=== PATIENT | female | born 1955 | race Two or more races ===

== ENCOUNTER 2024-02-28 23:49 | Inpatient (IN) | payer OTHER ==
[~2024-02-28] VITALS: Ht 167.6 cm; Wt 66.4 kg
[2024-02-29] VITALS (7 sets, daily range): BP systolic 113; BP diastolic 57; PULSE 20–91; RESP 14–20; TEMP 97.9; O2SAT 93–99
[2024-02-29 00:51] LABS: Chloride 105 mmol/L (98-107); Potassium 3.3 mmol/L (3.5-5.1); Sodium 133 mmol/L (136-145)
[2024-02-29 00:52] LABS: Anion Gap 8 (5-15); Basophils # (auto) 0 10 ^3/uL (0-0.2); Calcium 7.8 mg/dL (8.7-10.4); Carbon Dioxide 20 mmol/L (20-30); Eosinophils # (auto) 0.1 10 ^3/uL (0-0.8); Eosinophils % (auto) 0.9 % (0.0-7.0); Mean Corpuscular Volume 83.4 fL (80.0-100.0); Monocytes # (auto) 0.3 10 ^3/uL (0-1.3)
[2024-02-29 00:54] LABS: Basophils % (auto) 0.3 % (0.0-2.0); Hemoglobin 9.4 g/dL (12.2-16.2); Lymphocytes # (auto) 1.6 10 ^3/uL (0.4-5.4); Lymphocytes % (auto) 12.1 % (10.0-50.0); Mean Corpuscular Hgb Conc. 33.6 g/dL (32.0-36.0); Monocytes % (auto) 2.7 % (0.0-12.0); Neutrophils # (auto) 10.9 10 ^3/uL (1.6-8.6); Nucleated Red Blood Cells % 0.1 %; Red Blood Cells 3.36 10^6/uL (4.0-5.20); Red Cell Distribution Width 17.4 % (11.8-14.3)
[2024-02-29 00:57] LABS: BUN/Creatinine Ratio 30.8 (10.0-20.0); Blood Urea Nitrogen 20 mg/dL (9-23); Glucose 100 mg/dL (74-106)
[2024-02-29 01:23] LABS: Large Platelets MODERATE; Platelet Count (auto) 863 10^3/uL (140-450); Platelet Estimate Marked
[2024-02-29 02:06] LABS: Lactic Acid w/Reflex 2.7 mmol/L (0.4-2.0)
[2024-02-29] MEDS: SODIUM CHLORIDE 0.9% 1,000 ML IV ONE (03:30)
[2024-02-29] MEDS: SODIUM CHLORIDE 0.9% 1,800 ML IV ONE (03:30)
[2024-02-29] MEDS: cefTRIAXone 1GM/50ML D5W 50 ML IV ONE (03:30)
[2024-02-29] MEDS: CLINDAMYCIN 600MG IV 50 ML IV ONE (04:25)
[2024-02-29 05:09] LABS: Urine Bacteria None Seen /hpf (None Seen)
[2024-02-29 05:33] LABS: Urine Blood Negative /uL (Negative); Urine Clarity Clear (Clear); Urine Color Yellow (Yellow); Urine Hyaline Cast MANY /lpf (0 - 2); Urine Mucus FEW (None Seen); Urine Protein, UAD 1+ (Negative); Urine Specific Gravity 1.025 (1.001-1.035); Urine Urobilinogen Normal (Negative); Urine WBC 4 /hpf (0 - 5); Urine pH 5.5 (5.0-9.0)
[2024-02-29] MEDS ORDERED: HYDROcodone-ACET 5/325MG TAB PO PRN (09:30)
[2024-02-29] MEDS ORDERED: MORPHINE SULFATE INJ 2 MG/ml SYRG IV PRN (09:30)
[2024-02-29] MEDS ORDERED: VANCOMYCIN PER PHARMACY 0 MG IV SCH (09:30)
[2024-02-29] MEDS: SODIUM CHLORIDE 0.9% 1,000 ML IV SCH (09:30)
[2024-02-29] MEDS ORDERED: ONDANSETRON HCL 4 MG/2 ML VIAL IV PRN (09:30)
[2024-02-29] MEDS ORDERED: TOFA1TAB PO (09:38)
[2024-02-29] MEDS: TOFACITINIB CITRATE PO SCH (10:00)
[2024-02-29] MEDS: NICOTINE 14 MG/24HR TOPICAL PATCH TD SCH (10:00)
[2024-02-29] MEDS: CEFEPIME 1GM/ 50ML 50 ML IV ONE (10:21)
[2024-02-29] MEDS: POTASSIUM CHL 20MEQ/100ML 100 ML IV ONE (10:22)
[2024-02-29] MEDS: ENOXAPARIN SOD 40 MG/0.4 ML SYRINGE SC SCH (10:22)
[2024-02-29] MEDS: VANCOMYCIN 1.25GM/250ML 250 ML IV ONE (10:56)
[2024-02-29] MEDS: OMEPRAZOLE-SOD BICARB 20 MG POWDER PO SCH (12:36)
[2024-02-29] MEDS: AMIODARONE BOLUS KIT 100 ML IV ONE (14:46)
[2024-02-29] MEDS: AMIODARONE 450mg/250ml AE 250 ML IV SCH (14:56)
[2024-02-29] MEDS: MAGNESIUM SULFATE 1GM/100ML 100 ML IV ONE (15:10)
[2024-02-29] MEDS: ENOXAPARIN SOD 30 MG/0.3 ML SYRINGE SC ONE (15:30)
[2024-02-29] MEDS: ENOXAPARIN SOD 60 MG/0.6 ML SYRINGE SC ONE (16:51)
[2024-02-29] MEDS: ACETAMINOPHEN 325 MG TAB PO PRN (17:54)
[2024-02-29] MEDS: AMIODARONE HCL 200 MG TAB PO ONE (19:53)
[2024-02-29] MEDS ORDERED: AMIODARONE 450mg/250ml AE 250 ML IV SCH (20:15)
[2024-02-29] MEDS: METOPROLOL TARTRATE 25 MG TAB PO SCH (22:00)
[2024-02-29] MEDS: MAGNESIUM OXIDE 400 MG TAB PO SCH (22:49)
[2024-02-29] MEDS: ENOXAPARIN SOD 60 MG/0.6 ML SYRINGE SC SCH (22:49)
[2024-02-29] MEDS: CEFEPIME 1GM/ 50ML 50 ML IV SCH (22:51)
[2024-02-29] MEDS ORDERED: OMEP20TA PO (23:42)
[2024-02-29] MEDS ORDERED: TOFA5TAB PO (23:42)
[2024-03-01] VITALS (8 sets, daily range): BP systolic 120–153; BP diastolic 57–79; PULSE 70–86; RESP 17–19; TEMP 97.2–99.1; O2SAT 93–95
[2024-03-01] MEDS: VANCOMYCIN 1GM/250ML 200 ML IV SCH (03:23)
[2024-03-01 07:29] LABS: Albumin 2.3 g/dL (3.2-4.8); Alkaline Phosphatase 72 U/L (46-116); Anion Gap 7 (5-15); Aspartate Aminotransferase 10 U/L (13-40); Bilirubin, Total 0.3 mg/dL (0.2-1.0); Blood Urea Nitrogen 18 mg/dL (9-23); Carbon Dioxide 18 mmol/L (20-30); Chloride 107 mmol/L (98-107); Glucose 65 mg/dL (74-106); Potassium 3.2 mmol/L (3.5-5.1); Sodium 132 mmol/L (136-145); Total Protein 4.8 g/dL (5.7-8.2)
[2024-03-01 07:31] LABS: Red Cell Distribution Width 17.3 % (11.8-14.3)
[2024-03-01 07:33] LABS: Hematocrit 21.5 % (36.0-46.0); Mean Corpuscular Hemoglobin 27.1 pg (28.0-32.0); Mean Corpuscular Hgb Conc. 32.5 g/dL (32.0-36.0); Mean Corpuscular Volume 83.4 fL (80.0-100.0); Platelet Count (auto) 716 10^3/uL (140-450); Red Blood Cells 2.57 10^6/uL (4.0-5.20); White Blood Cell 12.1 10^3/uL (4.4-10.8)
[2024-03-01 07:45] LABS: Alanine Aminotransferase < 9 U/L (7-40)
[2024-03-01 07:49] LABS: Basophils % (manual) 0 (0.0-2.0); Blast Cells 0; Myelocytes % 0; Promyelocytes % 0; Reactive Lymphocytes 0
[2024-03-01 07:58] LABS: LDL Cholesterol 26 mg/dL (< 100); Triglycerides 113 mg/dL (< 150)
[2024-03-01 08:00] LABS: Cholesterol 68 mg/dL (< 200); HDL Cholesterol 15 mg/dL (40-59)
[2024-03-01 08:45] LABS: Band Neutrophils % (manual) 17; Eosinophils % (manual) 2 (0-7); Lymphocytes % (manual) 10 (10.0-50.0); Metamyelocytes % 2; Monocytes % (manual) 2 (0-12)
[2024-03-01 08:47] LABS: Anisocytosis Slight; Platelet Estimate Increased
[2024-03-01 08:48] LABS: Polychromasia Slight; Tear Drop Cells FEW
[2024-03-01] MEDS ORDERED: KETOROLAC TROMETH 30 MG/ML 1ML VIAL IV PRN (09:00)
[2024-03-01] MEDS ORDERED: METOPROLOL TARTRATE 25 MG TAB PO SCH (10:00)
[2024-03-01] MEDS: AMIODARONE HCL 200 MG TAB PO SCH (10:45)
[2024-03-01] MEDS: POTASSIUM CHL 20MEQ/100ML 100 ML IV SCH (14:13)
[2024-03-01] MEDS: PANTOPRAZOLE 40 MG/10 ML VIAL INJ IV SCH (14:26)
[2024-03-01] MEDS: IOHEXOL 300 MG/ML 100ML BOTTLE IJ ONE (14:58)
[2024-03-01 15:50] LABS: % Iron Saturation 12.5 % (15-50)
[2024-03-01 16:45] LABS: Ferritin 409.8 ng/mL (10-291)
[2024-03-01 16:46] LABS: Folate (Folic Acid) 12.73 ng/mL (>5.38)
[2024-03-01] MEDS ORDERED: CALCIUM GLUC 1,000mg/50ml-NS 50 ML IV SCH (18:00)
[2024-03-01] MEDS: MUPIROCIN 2% OINT 15gm or 22gm FOR MRSA NARES EACHNOSTRI SCH (22:00)
[2024-03-02] VITALS (10 sets, daily range): BP systolic 111–137; BP diastolic 55–62; PULSE 63–89; RESP 16–19; TEMP 97.9–98.8; O2SAT 90–100
[2024-03-02 00:26] LABS: Hematocrit 26.9 % (36.0-46.0); Hemoglobin 8.8 g/dL (12.2-16.2)
[2024-03-02 01:00] LABS: Erythrocyte Sedimentation Rate 96 mm/hr (0-20)
[2024-03-02] MEDS: POTASSIUM CHL 20MEQ/100ML 100 ML IV ONE (06:06)
[2024-03-02 06:32] LABS: Hematocrit 26.4 % (36.0-46.0); Hemoglobin 8.6 g/dL (12.2-16.2); Mean Corpuscular Hemoglobin 26.4 pg (28.0-32.0); Mean Corpuscular Hgb Conc. 32.4 g/dL (32.0-36.0); Mean Corpuscular Volume 81.6 fL (80.0-100.0); Platelet Count (auto) 651 10^3/uL (140-450); Red Blood Cells 3.24 10^6/uL (4.0-5.20); Red Cell Distribution Width 16.6 % (11.8-14.3); White Blood Cell 12.1 10^3/uL (4.4-10.8)
[2024-03-02 06:33] LABS: Chloride 109 mmol/L (98-107); Potassium 3.6 mmol/L (3.5-5.1); Sodium 133 mmol/L (136-145)
[2024-03-02 06:34] LABS: Anion Gap 7 (5-15); Calcium 7.6 mg/dL (8.7-10.4); Carbon Dioxide 17 mmol/L (20-30)
[2024-03-02 06:38] LABS: Basophils % (manual) 0 (0.0-2.0); Blast Cells 0; Eosinophils % (manual) 0 (0-7); Metamyelocytes % 0; Myelocytes % 0; Promyelocytes % 0; Reactive Lymphocytes 0
[2024-03-02 06:39] LABS: BUN/Creatinine Ratio 31.8 (10.0-20.0); Blood Urea Nitrogen 14 mg/dL (9-23); Glucose 66 mg/dL (74-106)
[2024-03-02 07:49] LABS: Band Neutrophils % (manual) 35; Lymphocytes % (manual) 14 (10.0-50.0); Monocytes % (manual) 7 (0-12); Platelet Estimate Increased
[2024-03-02] MEDS: METOPROLOL TARTRATE 25 MG TAB PO SCH (10:02)
[2024-03-02] MEDS: VANCOMYCIN 1GM/250ML 200 ML IV SCH (10:14)
[2024-03-02] MEDS: IPRATROPIUM BROM 0.5 MG/2.5ML INH SOL NEB SCH (18:50)
[2024-03-02] MEDS: ALBUTEROL SULF 2.5 MG/0.5ML(0.5%) NEB SOLN NEB PRN (18:51)
[2024-03-03] VITALS (15 sets, daily range): BP systolic 114–148; BP diastolic 58–75; PULSE 69–86; RESP 14–18; TEMP 97.9–98.2; O2SAT 93–100
[2024-03-03] MEDS: VANCOMYCIN 1GM/250ML 200 ML IV SCH (01:01)
[2024-03-03 10:03] LABS: Hematocrit 26.8 % (36.0-46.0); Hemoglobin 8.7 g/dL (12.2-16.2); Mean Corpuscular Hemoglobin 27.5 pg (28.0-32.0)
[2024-03-03 10:10] LABS: Mean Corpuscular Hgb Conc. 32.3 g/dL (32.0-36.0); Mean Corpuscular Volume 85.1 fL (80.0-100.0); Platelet Count (auto) 570 10^3/uL (140-450); Red Blood Cells 3.15 10^6/uL (4.0-5.20); Red Cell Distribution Width 17.1 % (11.8-14.3); White Blood Cell 13.3 10^3/uL (4.4-10.8)
[2024-03-03 10:13] LABS: Chloride 109 mmol/L (98-107); Sodium 133 mmol/L (136-145)
[2024-03-03 10:14] LABS: Anion Gap 7 (5-15); Carbon Dioxide 17 mmol/L (20-30)
[2024-03-03 10:15] LABS: Calcium 7.8 mg/dL (8.7-10.4)
[2024-03-03 10:19] LABS: Glucose 65 mg/dL (74-106)
[2024-03-03 10:20] LABS: BUN/Creatinine Ratio 37.1 (10.0-20.0); Blood Urea Nitrogen 13 mg/dL (9-23)
[2024-03-03 10:36] LABS: Basophils % (manual) 0 (0.0-2.0); Blast Cells 0; Myelocytes % 0; Promyelocytes % 0; Reactive Lymphocytes 0
[2024-03-03 11:14] LABS: INR 1.18 (0.9-1.15); Prothrombin Time 12.4 sec (9.3-11.8)
[2024-03-03 12:54] LABS: Band Neutrophils % (manual) 13; Eosinophils % (manual) 1 (0-7); Lymphocytes % (manual) 6 (10.0-50.0); Metamyelocytes % 2; Monocytes % (manual) 3 (0-12)
[2024-03-03 12:55] LABS: Platelet Estimate Increased
[2024-03-03] MEDS ORDERED: ONDANSETRON HCL 4 MG/2 ML VIAL ONE (13:19)
[2024-03-03] MEDS ORDERED: GLYCOPYRROLATE 0.2 MG/ML 1ML VIAL ONE (13:19)
[2024-03-03] MEDS ORDERED: LIDOCAINE 2% (LOCAL ANESTH.) PF 5ml SDV ONE (13:19)
[2024-03-03] MEDS ORDERED: PROPOFOL 10 MG/ML 20 ML IV ONE (13:19)
[2024-03-03] MEDS ORDERED: MIDAZOLAM HCL 2MG/2ML 2ml VIAL (1mg/ml) ONE (13:19)
[2024-03-03] MEDS ORDERED: KETAMINE 50mg/ML 1ml syringe ONE (13:27)
[2024-03-03] MEDS: SUCRALFATE 1 GM/10 ML ORAL SUSP GT SCH (17:00)
[2024-03-03] MEDS: ERTAPENEM SOD INJ 1 GM in SODIUM CHL 0.9% 50 ML IV ONE (17:54)
[2024-03-04] VITALS (13 sets, daily range): BP systolic 94–143; BP diastolic 55–75; PULSE 61–99; RESP 14–18; TEMP 98–98.5; O2SAT 92–100
[2024-03-04 07:46] LABS: Anion Gap 8 (5-15); Carbon Dioxide 16 mmol/L (20-30); Chloride 109 mmol/L (98-107); Potassium 3.8 mmol/L (3.5-5.1); Sodium 133 mmol/L (136-145)
[2024-03-04 07:47] LABS: Calcium 7.8 mg/dL (8.7-10.4)
[2024-03-04 07:48] LABS: Hematocrit 25.2 % (36.0-46.0); Hemoglobin 8.4 g/dL (12.2-16.2); Mean Corpuscular Hemoglobin 28.6 pg (28.0-32.0); Mean Corpuscular Hgb Conc. 33.2 g/dL (32.0-36.0); Mean Corpuscular Volume 86.4 fL (80.0-100.0); Platelet Count (auto) 564 10^3/uL (140-450); Red Blood Cells 2.91 10^6/uL (4.0-5.20); Red Cell Distribution Width 17.4 % (11.8-14.3); White Blood Cell 10.6 10^3/uL (4.4-10.8)
[2024-03-04 07:52] LABS: BUN/Creatinine Ratio 23.5 (10.0-20.0); Blood Urea Nitrogen 8 mg/dL (9-23)
[2024-03-04 07:54] LABS: Glucose 47 mg/dL (74-106)
[2024-03-04 08:03] LABS: Basophils % (manual) 0 (0.0-2.0); Blast Cells 0; Myelocytes % 0; Promyelocytes % 0; Reactive Lymphocytes 0
[2024-03-04] MEDS ORDERED: DEXTROSE (50%) 50ML SYRG IV PRN ×2 (08:45)
[2024-03-04] MEDS: ERTAPENEM SOD INJ 1 GM in SODIUM CHL 0.9% 50 ML IV SCH (09:12)
[2024-03-04] MEDS: METOPROLOL SUCCINATE XL 50 MG TAB PO SCH (09:12)
[2024-03-04] MEDS: InsuLIN REG 1unit/0.01ml Soln (100units/ml) SC SCH (11:22)
[2024-03-04] MEDS: ACCU-CHEK COMFORT CURVE STRIP VI SCH (11:22)
[2024-03-04] MEDS: POTASSIUM CHL 20 Meq TABLET PO ONE (11:45)
[2024-03-04 12:24] LABS: Band Neutrophils % (manual) 19; Eosinophils % (manual) 1 (0-7); Lymphocytes % (manual) 9 (10.0-50.0); Metamyelocytes % 5; Monocytes % (manual) 5 (0-12); Platelet Estimate Increased
[2024-03-04] MEDS ORDERED: KETAMINE 50mg/ML 10ml Vial 10 ML ONE (14:47)
[2024-03-04] MEDS ORDERED: MIDAZOLAM HCL 2MG/2ML 2ml VIAL (1mg/ml) ONE (14:47)
[2024-03-04] MEDS ORDERED: ONDANSETRON HCL 4 MG/2 ML VIAL ONE (14:47)
[2024-03-04] MEDS ORDERED: GLYCOPYRROLATE 0.2 MG/ML 1ML VIAL ONE (14:47)
[2024-03-04] MEDS ORDERED: PROPOFOL 10 MG/ML 20 ML IV ONE (14:47)
[2024-03-04] MEDS ORDERED: DexAMETHasone SOD PHOS 10MG/1ML VIAL INJ ONE (15:54)
[2024-03-04] MEDS ORDERED: LIDOCAINE HCL 2% TOP JELLY 5ML TOP ONE (15:54)
[2024-03-04] MEDS ORDERED: KETOROLAC TROMETH 30 MG/ML 1ML VIAL ONE (15:54)
[2024-03-04] MEDS ORDERED: LIDOCAINE 2% (LOCAL ANESTH.) PF 5ml SDV ONE (15:56)
[2024-03-04] MEDS: ceFAZolin 2 GM/D5W100ml 100 ML IV ONE (16:07)
[2024-03-04] MEDS ORDERED: fentaNYL CITRATE 100 MCG/2 ML VL ONE (16:07)
[2024-03-04] MEDS: VANCOMYCIN HCL 1000 MG VL ONE (16:47)
[2024-03-04] MEDS: SUCRALFATE 1 GM/10 ML ORAL SUSP PO SCH (17:00)
[2024-03-04] MEDS: BUPIVACAINE 0.25% INJ 50ML VIAL ONE (17:25)
[2024-03-04] MEDS ORDERED: hydrALAZINE HCL 20 MG/ML VL IV PRN (18:00)
[2024-03-04] MEDS ORDERED: ONDANSETRON HCL 4 MG/2 ML VIAL IV PRN (18:00)
[2024-03-04] MEDS ORDERED: HYDROmorphone HCL 2 MG/ML VL/or syr IV PRN (18:00)
[2024-03-04] MEDS ORDERED: ePHEDrine SULFATE 50 MG/ML AMP IV PRN (18:00)
[2024-03-04] MEDS ORDERED: fentaNYL CITRATE 100 MCG/2 ML VL IV PRN (18:00)
[2024-03-04] MEDS ORDERED: FLUMAZENIL 0.1 MG/ML INJ 10ML MDV IV PRN (18:00)
[2024-03-04] MEDS: oxyCODONE HCL 5MG TAB PO ONE (18:00)
[2024-03-04] MEDS ORDERED: NALOXONE HCL 0.4 MG/ML VIAL IV PRN (18:00)
[2024-03-05] VITALS (13 sets, daily range): BP systolic 110–141; BP diastolic 54–87; PULSE 57–65; RESP 15–18; TEMP 97.7–97.9; O2SAT 91–100
[2024-03-05 07:35] LABS: Chloride 111 mmol/L (98-107); Potassium 4.8 mmol/L (3.5-5.1); Sodium 133 mmol/L (136-145)
[2024-03-05 07:36] LABS: Anion Gap 6 (5-15); Carbon Dioxide 16 mmol/L (20-30)
[2024-03-05 07:37] LABS: Hematocrit 27.1 % (36.0-46.0); Hemoglobin 8.6 g/dL (12.2-16.2); Mean Corpuscular Hemoglobin 27.6 pg (28.0-32.0); Mean Corpuscular Hgb Conc. 31.7 g/dL (32.0-36.0); Mean Corpuscular Volume 87.1 fL (80.0-100.0); Platelet Count (auto) 583 10^3/uL (140-450); Red Blood Cells 3.11 10^6/uL (4.0-5.20); Red Cell Distribution Width 17.4 % (11.8-14.3); White Blood Cell 14.7 10^3/uL (4.4-10.8)
[2024-03-05 07:40] LABS: Basophils % (manual) 0 (0.0-2.0); Blast Cells 0; Eosinophils % (manual) 0 (0-7); Myelocytes % 0; Promyelocytes % 0; Reactive Lymphocytes 0
[2024-03-05 07:41] LABS: Glucose 123 mg/dL (74-106)
[2024-03-05 07:42] LABS: BUN/Creatinine Ratio 26.5 (10.0-20.0); Blood Urea Nitrogen 13 mg/dL (9-23)
[2024-03-05] MEDS: Ensure HIGH Protein Chocolate 8oz Bottle PO SCH (08:00)
[2024-03-05 11:42] LABS: Band Neutrophils % (manual) 27; Lymphocytes % (manual) 8 (10.0-50.0); Metamyelocytes % 4; Monocytes % (manual) 2 (0-12)
[2024-03-05 11:43] LABS: Platelet Estimate Increased
[2024-03-05] MEDS: VANCOMYCIN 1GM/250ML 200 ML IV SCH (12:03)
[2024-03-06] VITALS (12 sets, daily range): BP systolic 121–137; BP diastolic 64–87; PULSE 56–78; RESP 17–20; TEMP 97.6–98.4; O2SAT 90–100
[2024-03-06 06:21] LABS: Hematocrit 25.9 % (36.0-46.0); Hemoglobin 8.2 g/dL (12.2-16.2); Mean Corpuscular Hemoglobin 27.3 pg (28.0-32.0); Mean Corpuscular Hgb Conc. 31.7 g/dL (32.0-36.0); Mean Corpuscular Volume 85.9 fL (80.0-100.0); Platelet Count (auto) 486 10^3/uL (140-450); Red Blood Cells 3.01 10^6/uL (4.0-5.20); Red Cell Distribution Width 17.7 % (11.8-14.3); White Blood Cell 11.4 10^3/uL (4.4-10.8)
[2024-03-06 06:26] LABS: Anion Gap 6 (5-15); Carbon Dioxide 17 mmol/L (20-30); Chloride 109 mmol/L (98-107); Potassium 4.3 mmol/L (3.5-5.1); Sodium 132 mmol/L (136-145)
[2024-03-06 06:27] LABS: Basophils % (manual) 0 (0.0-2.0); Blast Cells 0; Eosinophils % (manual) 0 (0-7); Myelocytes % 0; Promyelocytes % 0; Reactive Lymphocytes 0
[2024-03-06 06:32] LABS: BUN/Creatinine Ratio 38.2 (10.0-20.0); Blood Urea Nitrogen 13 mg/dL (9-23); Glucose 78 mg/dL (74-106)
[2024-03-06 07:39] LABS: Band Neutrophils % (manual) 17; Lymphocytes % (manual) 10 (10.0-50.0); Metamyelocytes % 1; Monocytes % (manual) 6 (0-12); Platelet Estimate Increased
[2024-03-06] MEDS: SUCRALFATE 1 GM TAB PO SCH (15:04)
[2024-03-07] VITALS (13 sets, daily range): BP systolic 127–135; BP diastolic 69–70; PULSE 64–79; RESP 16–19; TEMP 97.6–98.3; O2SAT 90–100
[2024-03-07 06:33] LABS: Mean Corpuscular Hemoglobin 27.8 pg (28.0-32.0)
[2024-03-07 06:34] LABS: Hematocrit 27.6 % (36.0-46.0); Hemoglobin 8.5 g/dL (12.2-16.2); Mean Corpuscular Hgb Conc. 30.9 g/dL (32.0-36.0); Mean Corpuscular Volume 90.1 fL (80.0-100.0); Platelet Count (auto) 509 10^3/uL (140-450); Red Blood Cells 3.06 10^6/uL (4.0-5.20); Red Cell Distribution Width 18.7 % (11.8-14.3); White Blood Cell 13.8 10^3/uL (4.4-10.8)
[2024-03-07 06:44] LABS: Basophils % (manual) 0 (0.0-2.0); Blast Cells 0; Eosinophils % (manual) 0 (0-7); Metamyelocytes % 0; Myelocytes % 0; Promyelocytes % 0; Reactive Lymphocytes 0
[2024-03-07 06:49] LABS: Anion Gap 11 (5-15); Carbon Dioxide 15 mmol/L (20-30); Chloride 108 mmol/L (98-107); Sodium 134 mmol/L (136-145)
[2024-03-07 06:50] LABS: Calcium 8.1 mg/dL (8.7-10.4)
[2024-03-07 06:56] LABS: BUN/Creatinine Ratio 30.3 (10.0-20.0); Blood Urea Nitrogen 10 mg/dL (9-23); Glucose 71 mg/dL (74-106)
[2024-03-07 08:23] LABS: Band Neutrophils % (manual) 7; Lymphocytes % (manual) 8 (10.0-50.0); Monocytes % (manual) 3 (0-12); Platelet Estimate Increased
[2024-03-07] MEDS: POLYETHYLENE GLYCOL 17 GM PWDR PO ONE (14:28)
[2024-03-07] MEDS: SUCRALFATE 1 GM TAB PO SCH (21:16)
[2024-03-07] MEDS: DOCUSATE SOD 100 MG CAP PO SCH (21:18)
[2024-03-08] VITALS (16 sets, daily range): BP systolic 125–143; BP diastolic 62–90; PULSE 68–84; RESP 16–22; TEMP 98.1–98.9; O2SAT 91–99
[2024-03-08 06:17] LABS: Hemoglobin 8.2 g/dL (12.2-16.2); Mean Corpuscular Hemoglobin 28.2 pg (28.0-32.0); Mean Corpuscular Hgb Conc. 32.9 g/dL (32.0-36.0); Mean Corpuscular Volume 85.7 fL (80.0-100.0); Platelet Count (auto) 486 10^3/uL (140-450); Red Blood Cells 2.92 10^6/uL (4.0-5.20); Red Cell Distribution Width 17.6 % (11.8-14.3); White Blood Cell 9.3 10^3/uL (4.4-10.8)
[2024-03-08 06:22] LABS: Basophils % (manual) 0 (0.0-2.0); Blast Cells 0; Myelocytes % 0; Promyelocytes % 0; Reactive Lymphocytes 0
[2024-03-08 06:23] LABS: Albumin 2.4 g/dL (3.2-4.8); Alkaline Phosphatase 84 U/L (46-116); Anion Gap 8 (5-15); Aspartate Aminotransferase < 8 U/L (13-40); BUN/Creatinine Ratio 29.2 (10.0-20.0); Bilirubin, Total 0.2 mg/dL (0.2-1.0); Blood Urea Nitrogen 7 mg/dL (9-23); Carbon Dioxide 18 mmol/L (20-30); Chloride 109 mmol/L (98-107); Glucose 73 mg/dL (74-106); Magnesium 1.9 mg/dL (1.6-2.6); Phosphorus 2.4 mg/dL (2.4-5.1); Potassium 3.5 mmol/L (3.5-5.1); Sodium 135 mmol/L (136-145); Total Protein 4.6 g/dL (5.7-8.2)
[2024-03-08 06:27] LABS: Alanine Aminotransferase < 9 U/L (7-40)
[2024-03-08 06:53] LABS: Calcium 7.9 mg/dL (8.7-10.4)
[2024-03-08 07:38] LABS: Band Neutrophils % (manual) 7; Eosinophils % (manual) 1 (0-7); Lymphocytes % (manual) 5 (10.0-50.0); Metamyelocytes % 1; Monocytes % (manual) 3 (0-12); Platelet Estimate Increased
[2024-03-08] MEDS: MAGNESIUM SULFATE 1GM/100ML 100 ML IV ONE (08:22)
[2024-03-08] MEDS: POTASSIUM CHL 20 Meq TABLET PO ONE (08:22)
[2024-03-08] MEDS: POLYETHYLENE GLYCOL 17 GM PWDR PO SCH (10:00)
[2024-03-08] MEDS: Juven Orange Powder PACKET 27.5gm PO SCH (18:00)
[2024-03-09] VITALS (10 sets, daily range): BP systolic 117–144; BP diastolic 51–70; PULSE 68–80; RESP 16–20; TEMP 97.7–98.5; O2SAT 91–99
[2024-03-09] MEDS ORDERED: IPRATROPIUM BROM 0.5 MG/2.5ML INH SOL NEB PRN (12:00)
[2024-03-09] MEDS ORDERED: VANCOMYCIN 1GM/250ML 200 ML IV SCH (14:00)
[2024-03-09] MEDS: KETOROLAC TROMETH 30 MG/ML 1ML VIAL IV PRN (14:14)
[2024-03-09 15:15] LABS: Basophils # (auto) 0 10 ^3/uL (0-0.2); Eosinophils # (auto) 0.1 10 ^3/uL (0-0.8); Eosinophils % (auto) 0.8 % (0.0-7.0); Lymphocytes # (auto) 0.7 10 ^3/uL (0.4-5.4); Lymphocytes % (auto) 7.1 % (10.0-50.0); Monocytes # (auto) 0.4 10 ^3/uL (0-1.3); Neutrophils # (auto) 8.6 10 ^3/uL (1.6-8.6); White Blood Cell 9.8 10^3/uL (4.4-10.8)
[2024-03-09 15:17] LABS: Basophils % (auto) 0.1 % (0.0-2.0); Hematocrit 28.8 % (36.0-46.0); Mean Corpuscular Hemoglobin 27.3 pg (28.0-32.0); Mean Corpuscular Hgb Conc. 31.3 g/dL (32.0-36.0); Monocytes % (auto) 4.2 % (0.0-12.0); Neutrophils % (auto) 87.8 % (37.0-80.0); Nucleated Red Blood Cells % 0.1 %; Platelet Count (auto) 511 10^3/uL (140-450)
[2024-03-09 17:28] LABS: Chloride 109 mmol/L (98-107); Potassium 3.4 mmol/L (3.5-5.1); Sodium 135 mmol/L (136-145)
[2024-03-09 17:29] LABS: Anion Gap 5 (5-15); Calcium 7.4 mg/dL (8.7-10.4); Carbon Dioxide 21 mmol/L (20-30)
[2024-03-09 17:34] LABS: BUN/Creatinine Ratio 20.7 (10.0-20.0); Blood Urea Nitrogen 6 mg/dL (9-23); Glucose 94 mg/dL (74-106)
[2024-03-09 17:41] LABS: Anisocytosis Slight; Platelet Estimate Increased
[2024-03-09] MEDS: DAPTOmycin 500 MG in SODIUM CHL 0.9% 50 ML IV SCH (21:41)
[2024-03-09] MEDS ORDERED: metroNIDAZOLE 500 MG TAB PO SCH (22:00)
[2024-03-10] VITALS (11 sets, daily range): BP systolic 135–147; BP diastolic 6–90; PULSE 62–74; RESP 16–20; TEMP 97.4–98.9; O2SAT 89–97
[2024-03-10] MEDS: KETOROLAC TROMETH 30 MG/ML 1ML VIAL IV ONE ×3 (05:02→15:45)
[2024-03-10 05:21] LABS: Basophils # (auto) 0 10 ^3/uL (0-0.2); Basophils % (auto) 0.1 % (0.0-2.0); Eosinophils # (auto) 0.1 10 ^3/uL (0-0.8); Eosinophils % (auto) 1.2 % (0.0-7.0); Hemoglobin 7.6 g/dL (12.2-16.2); Lymphocytes % (auto) 11.5 % (10.0-50.0); Monocytes # (auto) 0.3 10 ^3/uL (0-1.3); Monocytes % (auto) 3.6 % (0.0-12.0); Neutrophils % (auto) 83.6 % (37.0-80.0); Platelet Count (auto) 502 10^3/uL (140-450); Red Cell Distribution Width 17.4 % (11.8-14.3)
[2024-03-10 05:24] LABS: Albumin 2.2 g/dL (3.2-4.8); Alkaline Phosphatase 77 U/L (46-116); Anion Gap 4 (5-15); Aspartate Aminotransferase < 8 U/L (13-40); Blood Urea Nitrogen 6 mg/dL (9-23); Calcium 7.4 mg/dL (8.7-10.4); Carbon Dioxide 20 mmol/L (20-30); Chloride 110 mmol/L (98-107); Glucose 78 mg/dL (74-106); Hematocrit 22.6 % (36.0-46.0); Mean Corpuscular Hemoglobin 28.4 pg (28.0-32.0); Mean Corpuscular Hgb Conc. 33.4 g/dL (32.0-36.0); Mean Corpuscular Volume 85.2 fL (80.0-100.0); Potassium 3.4 mmol/L (3.5-5.1); Red Blood Cells 2.66 10^6/uL (4.0-5.20); Sodium 134 mmol/L (136-145); White Blood Cell 8.3 10^3/uL (4.4-10.8)
[2024-03-10 05:25] LABS: Bilirubin, Total 0.3 mg/dL (0.2-1.0); Total Protein 4.3 g/dL (5.7-8.2)
[2024-03-10 05:42] LABS: Alanine Aminotransferase < 9 U/L (7-40)
[2024-03-10 05:51] LABS: INR 1.17 (0.9-1.15); Partial Thromboplastin Time 30.2 SEC (24.5-34.5); Prothrombin Time 12.3 sec (9.3-11.8)
[2024-03-10] MEDS: MAGNESIUM SULFATE 1GM/100ML 100 ML IV ONE (08:15)
[2024-03-10] MEDS ORDERED: DAPTOmycin 0 MG in SODIUM CHL 0.9% 50 ML IV SCH (10:00)
[2024-03-10] MEDS: FLORASTOR (S. BOULARDII) 250 MG CAP PO SCH (10:18)
[2024-03-10] MEDS: POTASSIUM CHL 20MEQ/100ML 100 ML IV SCH (10:19)
[2024-03-10] MEDS: ROPIVACAINE 0.5% (5MG/ML) 20ML AMPULE IJ ONE (13:44)
[2024-03-10] MEDS: BUPIVACAINE 0.5% MPF INJ 30ML SDV IJ ONE (13:55)
[2024-03-10] MEDS: ceFAZolin 2 GM/D5W100ml 100 ML IV ONE (13:55)
[2024-03-10] MEDS ORDERED: fentaNYL CITRATE 100 MCG/2 ML VL ONE ×2 (13:58→14:20)
[2024-03-10] MEDS ORDERED: KETAMINE 50mg/ML 1ml syringe ONE (13:58)
[2024-03-10] MEDS ORDERED: MEPERIDINE HCL (50 MG/ML) 1 ML VIAL ONE (13:59)
[2024-03-10] MEDS ORDERED: LIDOCAINE HCL 2% TOP JELLY 5ML TOP ONE (13:59)
[2024-03-10] MEDS ORDERED: SODIUM CHLORIDE LOCK 10 ML ONE (13:59)
[2024-03-10] MEDS ORDERED: ONDANSETRON HCL 4 MG/2 ML VIAL ONE ×2 (13:59→14:20)
[2024-03-10] MEDS ORDERED: ROCURONIUM 10MG/ML 10ML VIAL IV ONE (13:59)
[2024-03-10] MEDS ORDERED: MIDAZOLAM HCL 2MG/2ML 2ml VIAL (1mg/ml) ONE ×2 (13:59→14:20)
[2024-03-10] MEDS ORDERED: LIDOCAINE 1% INJ PF 5ML AMP ONE (13:59)
[2024-03-10] MEDS ORDERED: PROPOFOL 10 MG/ML 20 ML IV ONE (13:59)
[2024-03-10] MEDS: METOCLOPRAMIDE HCL 5MG/ml INJ 2ml VIAL IV ONE (14:00)
[2024-03-10] MEDS ORDERED: MORPHINE SULFATE INJ 2 MG/ml SYRG IV PRN (14:00)
[2024-03-10] MEDS ORDERED: fentaNYL CITRATE 100 MCG/2 ML VL IV PRN (14:00)
[2024-03-10] MEDS: ACCU-CHEK COMFORT CURVE STRIP VI ONE (14:00)
[2024-03-10] MEDS ORDERED: HYDROmorphone HCL 2 MG/ML VL/or syr IV PRN ×4 (14:00→15:45)
[2024-03-10] MEDS ORDERED: LIDOCAINE 2% (LOCAL ANESTH.) PF 5ml SDV ONE (14:20)
[2024-03-10] MEDS: DOXAPRAM HCL 20 MG/ML 20ML VIAL INJ IV ONE (14:57)
[2024-03-10] MEDS: ONDANSETRON HCL 4 MG/2 ML VIAL IV ONE (15:45)
[2024-03-10] MEDS: POTASSIUM CHL 20MEQ/100ML 100 ML IV ONE (16:55)
[2024-03-10 18:55] LABS: Hematocrit 28.4 % (36.0-46.0)
[2024-03-10] MEDS: MORPHINE SULFATE INJ 2 MG/ml SYRG IV PRN (19:24)
[2024-03-11] VITALS (11 sets, daily range): BP systolic 104–131; BP diastolic 53–57; PULSE 69–77; RESP 16–18; TEMP 97.6–98.5; O2SAT 90–96
[2024-03-11 16:43] LABS: Basophils # (auto) 0 10 ^3/uL (0-0.2); Basophils % (auto) 0.2 % (0.0-2.0); Eosinophils # (auto) 0.1 10 ^3/uL (0-0.8); Eosinophils % (auto) 0.9 % (0.0-7.0); Lymphocytes # (auto) 0.5 10 ^3/uL (0.4-5.4); Lymphocytes % (auto) 8.2 % (10.0-50.0); Mean Corpuscular Hemoglobin 27.8 pg (28.0-32.0); Monocytes # (auto) 0.3 10 ^3/uL (0-1.3); Monocytes % (auto) 5.2 % (0.0-12.0); Neutrophils # (auto) 5.6 10 ^3/uL (1.6-8.6); Neutrophils % (auto) 85.5 % (37.0-80.0); Platelet Count (auto) 520 10^3/uL (140-450); Red Blood Cells 2.87 10^6/uL (4.0-5.20); White Blood Cell 6.6 10^3/uL (4.4-10.8)
[2024-03-11 16:58] LABS: Chloride 110 mmol/L (98-107); Potassium 3.9 mmol/L (3.5-5.1); Sodium 137 mmol/L (136-145)
[2024-03-11 16:59] LABS: Anion Gap 5 (5-15); Carbon Dioxide 22 mmol/L (20-30)
[2024-03-11 17:00] LABS: Calcium 7.8 mg/dL (8.7-10.4)
[2024-03-11 17:05] LABS: BUN/Creatinine Ratio 17.9 (10.0-20.0); Blood Urea Nitrogen 5 mg/dL (9-23); Glucose 66 mg/dL (74-106)
[2024-03-11] MEDS: IPRATROPIUM BROM 0.5 MG/2.5ML INH SOL NEB SCH (19:30)
[2024-03-11] MEDS: ALBUTEROL SULF 2.5 MG/0.5ML(0.5%) NEB SOLN NEB SCH (19:30)
[2024-03-12] VITALS (16 sets, daily range): BP systolic 117–129; BP diastolic 50–76; PULSE 65–92; RESP 16–20; TEMP 97.9–99; O2SAT 68–100
[2024-03-12 06:10] LABS: Chloride 110 mmol/L (98-107); Potassium 3.7 mmol/L (3.5-5.1); Sodium 137 mmol/L (136-145)
[2024-03-12 06:11] LABS: Anion Gap 5 (5-15); Calcium 7.7 mg/dL (8.7-10.4); Carbon Dioxide 22 mmol/L (20-30)
[2024-03-12 06:16] LABS: Blood Urea Nitrogen 6 mg/dL (9-23); Glucose 69 mg/dL (74-106); Magnesium 1.9 mg/dL (1.6-2.6)
[2024-03-12 06:22] LABS: Basophils # (auto) 0 10 ^3/uL (0-0.2); Basophils % (auto) 0.2 % (0.0-2.0); Eosinophils # (auto) 0.1 10 ^3/uL (0-0.8); Lymphocytes # (auto) 0.4 10 ^3/uL (0.4-5.4); Monocytes # (auto) 0.4 10 ^3/uL (0-1.3); Nucleated Red Blood Cells % 0.1 %
[2024-03-12 06:27] LABS: Eosinophils % (auto) 0.9 % (0.0-7.0); Hemoglobin 7.2 g/dL (12.2-16.2); Lymphocytes % (auto) 6.6 % (10.0-50.0); Mean Corpuscular Hemoglobin 28.2 pg (28.0-32.0); Mean Corpuscular Hgb Conc. 32.6 g/dL (32.0-36.0); Mean Corpuscular Volume 86.4 fL (80.0-100.0); Neutrophils # (auto) 5.1 10 ^3/uL (1.6-8.6); Neutrophils % (auto) 86.3 % (37.0-80.0); Platelet Count (auto) 480 10^3/uL (140-450); Red Blood Cells 2.54 10^6/uL (4.0-5.20); Red Cell Distribution Width 17.1 % (11.8-14.3); White Blood Cell 5.9 10^3/uL (4.4-10.8)
[2024-03-12] MEDS: FUROSEMIDE 40 MG/4 ML VIAL IV ONE (15:30)
[2024-03-13] VITALS (17 sets, daily range): BP systolic 106–137; BP diastolic 49–60; PULSE 65–98; RESP 16–20; TEMP 97.6–98.6; O2SAT 91–98
[2024-03-13 08:00] LABS: Potassium 3.8 mmol/L (3.5-5.1); Sodium 138 mmol/L (136-145)
[2024-03-13 08:01] LABS: Basophils # (auto) 0 10 ^3/uL (0-0.2); Basophils % (auto) 0.3 % (0.0-2.0); Calcium 7.8 mg/dL (8.7-10.4); Eosinophils # (auto) 0 10 ^3/uL (0-0.8); Hemoglobin 9.2 g/dL (12.2-16.2); Lymphocytes # (auto) 0.4 10 ^3/uL (0.4-5.4); Monocytes # (auto) 0.4 10 ^3/uL (0-1.3); Nucleated Red Blood Cells % 0.1 %; White Blood Cell 4.4 10^3/uL (4.4-10.8)
[2024-03-13 08:03] LABS: Eosinophils % (auto) 1.1 % (0.0-7.0); Hematocrit 27.3 % (36.0-46.0); Lymphocytes % (auto) 8.3 % (10.0-50.0); Mean Corpuscular Hemoglobin 29.4 pg (28.0-32.0); Mean Corpuscular Hgb Conc. 33.6 g/dL (32.0-36.0); Mean Corpuscular Volume 87.3 fL (80.0-100.0); Monocytes % (auto) 8.2 % (0.0-12.0); Neutrophils # (auto) 3.6 10 ^3/uL (1.6-8.6); Neutrophils % (auto) 82.1 % (37.0-80.0); Platelet Count (auto) 479 10^3/uL (140-450); Red Blood Cells 3.13 10^6/uL (4.0-5.20); Red Cell Distribution Width 16.4 % (11.8-14.3)
[2024-03-13 08:06] LABS: BUN/Creatinine Ratio 26.7 (10.0-20.0); Blood Urea Nitrogen 8 mg/dL (9-23); Glucose 80 mg/dL (74-106)
[2024-03-13 08:57] LABS: Chloride 110 mmol/L (98-107)
[2024-03-13 08:58] LABS: Anion Gap 9 (5-15); Carbon Dioxide 19 mmol/L (20-30)
[2024-03-13] MEDS: FUROSEMIDE 40 MG/4 ML VIAL IV SCH (10:28)
[2024-03-14] VITALS (16 sets, daily range): BP systolic 116–138; BP diastolic 53–64; PULSE 67–86; RESP 16–18; TEMP 97.6–98.9; O2SAT 90–99
[2024-03-14] MEDS: AMIODARONE HCL 200 MG TAB PO SCH (10:35)
[2024-03-14 13:50] LABS: Basophils # (auto) 0 10 ^3/uL (0-0.2); Basophils % (auto) 0.2 % (0.0-2.0); Eosinophils # (auto) 0 10 ^3/uL (0-0.8); Eosinophils % (auto) 0.3 % (0.0-7.0); Hematocrit 31.9 % (36.0-46.0); Hemoglobin 10.7 g/dL (12.2-16.2); Lymphocytes # (auto) 0.6 10 ^3/uL (0.4-5.4); Lymphocytes % (auto) 8.7 % (10.0-50.0); Mean Corpuscular Hemoglobin 28.7 pg (28.0-32.0); Mean Corpuscular Hgb Conc. 33.5 g/dL (32.0-36.0); Mean Corpuscular Volume 85.6 fL (80.0-100.0); Monocytes # (auto) 0.5 10 ^3/uL (0-1.3); Monocytes % (auto) 6.2 % (0.0-12.0); Neutrophils # (auto) 6.3 10 ^3/uL (1.6-8.6); Neutrophils % (auto) 84.6 % (37.0-80.0); Nucleated Red Blood Cells % 0.1 %; Platelet Count (auto) 557 10^3/uL (140-450); Red Blood Cells 3.73 10^6/uL (4.0-5.20); Red Cell Distribution Width 16.5 % (11.8-14.3); White Blood Cell 7.4 10^3/uL (4.4-10.8)
[2024-03-14 13:54] LABS: Chloride 102 mmol/L (98-107); Sodium 138 mmol/L (136-145)
[2024-03-14 13:55] LABS: Anion Gap 8 (5-15); Calcium 7.9 mg/dL (8.7-10.4); Carbon Dioxide 28 mmol/L (20-30)
[2024-03-14 14:00] LABS: BUN/Creatinine Ratio 18.8 (10.0-20.0); Blood Urea Nitrogen 6 mg/dL (9-23); Glucose 77 mg/dL (74-106); Magnesium 1.6 mg/dL (1.6-2.6)
[2024-03-14 14:04] LABS: Potassium 2.5 mmol/L (3.5-5.1)
[2024-03-14] MEDS: LIDOCAINE 1% (LOCAL ANESTH.) PF 5ml SDV ID ONE (16:00)
[2024-03-14] MEDS: FUROSEMIDE 40 MG/4 ML VIAL IV SCH (19:39)
[2024-03-14] MEDS: SODIUM CHLOR 0.9% PF (SALINE LOCK) 10ML VIAL/SYR IV SCH (21:02)
[2024-03-15] VITALS (10 sets, daily range): BP systolic 105–132; BP diastolic 54–65; PULSE 68–78; RESP 17–18; TEMP 97.6–98.2; O2SAT 87–96
[2024-03-15] MEDS: POTASSIUM CHL 20MEQ/100ML 100 ML IV ONE (05:19)
[2024-03-15 15:41] LABS: Alkaline Phosphatase 76 U/L (46-116); Anion Gap 0 (5-15); Aspartate Aminotransferase < 8 U/L (13-40); BUN/Creatinine Ratio 28.1 (10.0-20.0); Blood Urea Nitrogen 9 mg/dL (9-23); Calcium 7.7 mg/dL (8.7-10.4); Carbon Dioxide 33 mmol/L (20-30); Chloride 105 mmol/L (98-107); Glucose 97 mg/dL (74-106); Magnesium 1.5 mg/dL (1.6-2.6); Phosphorus 2.7 mg/dL (2.4-5.1); Potassium 2.7 mmol/L (3.5-5.1); Sodium 138 mmol/L (136-145)
[2024-03-15 15:42] LABS: Bilirubin, Total 0.3 mg/dL (0.2-1.0); Total Protein 4.1 g/dL (5.7-8.2)
[2024-03-15] MEDS ORDERED: POTASSIUM CHL 20MEQ/100ML 100 ML IV SCH (15:45)
[2024-03-15 15:46] LABS: Basophils # (auto) 0 10 ^3/uL (0-0.2); Basophils % (auto) 0.2 % (0.0-2.0); Eosinophils # (auto) 0 10 ^3/uL (0-0.8); Eosinophils % (auto) 0.9 % (0.0-7.0); Hematocrit 24.1 % (36.0-46.0); Hemoglobin 8.3 g/dL (12.2-16.2); Lymphocytes # (auto) 0.6 10 ^3/uL (0.4-5.4); Lymphocytes % (auto) 11.2 % (10.0-50.0); Mean Corpuscular Hemoglobin 28.9 pg (28.0-32.0); Mean Corpuscular Hgb Conc. 34.4 g/dL (32.0-36.0); Mean Corpuscular Volume 83.9 fL (80.0-100.0); Monocytes # (auto) 0.4 10 ^3/uL (0-1.3); Monocytes % (auto) 7.1 % (0.0-12.0); Neutrophils # (auto) 4.2 10 ^3/uL (1.6-8.6); Neutrophils % (auto) 80.6 % (37.0-80.0); Nucleated Red Blood Cells % 0.1 %; Platelet Count (auto) 461 10^3/uL (140-450); Red Blood Cells 2.87 10^6/uL (4.0-5.20); Red Cell Distribution Width 16.5 % (11.8-14.3); White Blood Cell 5.2 10^3/uL (4.4-10.8)
[2024-03-15 15:49] LABS: Alanine Aminotransferase < 9 U/L (7-40)
[2024-03-15] MEDS: MAGNESIUM OXIDE 400 MG TAB PO ONE (18:28)
[2024-03-15] MEDS: POTASSIUM EFFERVESENT TAB 25 MEQ PO ONE (18:28)
[2024-03-15] MEDS: POTASSIUM CHLORIDE 60 MEQ, LIDOCAINE 1% (LOCAL ANESTH.) 6 ML in SODIUM CHL 0.9% 500 ML IV ONE (18:32)
[2024-03-15 22:40] LABS: Chloride 104 mmol/L (98-107); Sodium 141 mmol/L (136-145)
[2024-03-15 22:42] LABS: Anion Gap 5 (5-15); Calcium 7.7 mg/dL (8.7-10.4); Carbon Dioxide 32 mmol/L (20-30)
[2024-03-15 22:47] LABS: BUN/Creatinine Ratio 34.5 (10.0-20.0); Blood Urea Nitrogen 10 mg/dL (9-23); Glucose 76 mg/dL (74-106)
[2024-03-16] VITALS (9 sets, daily range): BP systolic 113–126; BP diastolic 52–66; PULSE 75–83; RESP 15–18; TEMP 97.5–98.6; O2SAT 90–97
[2024-03-16] MEDS: POTASSIUM EFFERVESENT TAB 25 MEQ PO ONE (06:04)
[2024-03-16] MEDS: MAGNESIUM OXIDE 400 MG TAB PO SCH (10:10)
[2024-03-16 12:43] LABS: Basophils # (auto) 0 10 ^3/uL (0-0.2); Basophils % (auto) 0.4 % (0.0-2.0); Eosinophils # (auto) 0 10 ^3/uL (0-0.8); Eosinophils % (auto) 0.5 % (0.0-7.0); Hematocrit 27.1 % (36.0-46.0); Hemoglobin 9.2 g/dL (12.2-16.2); Lymphocytes # (auto) 0.6 10 ^3/uL (0.4-5.4); Lymphocytes % (auto) 10.8 % (10.0-50.0); Mean Corpuscular Hemoglobin 28.8 pg (28.0-32.0); Mean Corpuscular Volume 84.9 fL (80.0-100.0); Monocytes # (auto) 0.3 10 ^3/uL (0-1.3); Monocytes % (auto) 4.8 % (0.0-12.0); Neutrophils # (auto) 4.8 10 ^3/uL (1.6-8.6); Neutrophils % (auto) 83.5 % (37.0-80.0); Nucleated Red Blood Cells % 0.1 %; Platelet Count (auto) 471 10^3/uL (140-450); Red Blood Cells 3.19 10^6/uL (4.0-5.20); Red Cell Distribution Width 17.2 % (11.8-14.3); White Blood Cell 5.8 10^3/uL (4.4-10.8)
[2024-03-16 13:07] LABS: Alanine Aminotransferase < 9 U/L (7-40); Albumin 2.3 g/dL (3.2-4.8); Alkaline Phosphatase 89 U/L (46-116); Anion Gap 6 (5-15); Aspartate Aminotransferase < 8 U/L (13-40); BUN/Creatinine Ratio 32.3 (10.0-20.0); Bilirubin, Total 0.4 mg/dL (0.2-1.0); Blood Urea Nitrogen 10 mg/dL (9-23); Calcium 7.9 mg/dL (8.7-10.4); Carbon Dioxide 35 mmol/L (20-30); Chloride 98 mmol/L (98-107); Glucose 78 mg/dL (74-106); Potassium 2.7 mmol/L (3.5-5.1); Sodium 139 mmol/L (136-145); Total Protein 4.6 g/dL (5.7-8.2)
[2024-03-16] MEDS: ERGOCALCIFEROL 50,000 UNIT(1.25MG) CAP PO SCH (13:56)
[2024-03-16] MEDS: POTASSIUM CHL 20 Meq TABLET PO ONE (13:57)
[2024-03-16 21:30] LABS: Chloride 99 mmol/L (98-107); Potassium 3.2 mmol/L (3.5-5.1); Sodium 138 mmol/L (136-145)
[2024-03-16 21:32] LABS: Anion Gap 2 (5-15); Calcium 8.1 mg/dL (8.7-10.4); Carbon Dioxide 37 mmol/L (20-30)
[2024-03-16 21:36] LABS: Blood Urea Nitrogen 9 mg/dL (9-23); Glucose 78 mg/dL (74-106)
[2024-03-16 21:37] LABS: Magnesium 1.5 mg/dL (1.6-2.6)
[2024-03-17] VITALS (10 sets, daily range): BP systolic 91–127; BP diastolic 46–62; PULSE 57–81; RESP 15–22; TEMP 97.6–98.3; O2SAT 82–97
[2024-03-17 07:32] LABS: Basophils # (auto) 0 10 ^3/uL (0-0.2); Basophils % (auto) 0.3 % (0.0-2.0); Eosinophils # (auto) 0 10 ^3/uL (0-0.8); Eosinophils % (auto) 0.6 % (0.0-7.0); Hematocrit 26.8 % (36.0-46.0); Hemoglobin 9.2 g/dL (12.2-16.2); Lymphocytes # (auto) 0.6 10 ^3/uL (0.4-5.4); Lymphocytes % (auto) 8.7 % (10.0-50.0); Mean Corpuscular Hemoglobin 29.1 pg (28.0-32.0); Mean Corpuscular Hgb Conc. 34.3 g/dL (32.0-36.0); Mean Corpuscular Volume 84.8 fL (80.0-100.0); Monocytes # (auto) 0.2 10 ^3/uL (0-1.3); Monocytes % (auto) 3.1 % (0.0-12.0); Neutrophils # (auto) 6.4 10 ^3/uL (1.6-8.6); Neutrophils % (auto) 87.3 % (37.0-80.0); Platelet Count (auto) 437 10^3/uL (140-450); Red Blood Cells 3.16 10^6/uL (4.0-5.20); Red Cell Distribution Width 17.1 % (11.8-14.3); White Blood Cell 7.3 10^3/uL (4.4-10.8)
[2024-03-17 07:37] LABS: Anion Gap 5 (5-15); Carbon Dioxide 37 mmol/L (20-30); Chloride 96 mmol/L (98-107); Potassium 2.9 mmol/L (3.5-5.1); Sodium 138 mmol/L (136-145)
[2024-03-17 07:38] LABS: Calcium 8.1 mg/dL (8.7-10.4)
[2024-03-17 07:43] LABS: BUN/Creatinine Ratio 33.3 (10.0-20.0); Blood Urea Nitrogen 11 mg/dL (9-23); Glucose 79 mg/dL (74-106)
[2024-03-17 07:44] LABS: Magnesium 1.6 mg/dL (1.6-2.6)
[2024-03-17] MEDS ORDERED: POTASSIUM CHL 20 Meq TABLET PO ONE (08:30)
[2024-03-17] MEDS: POTASSIUM CHL 20 Meq TABLET PO ONE ×3 (11:19→17:00)
[2024-03-17] MEDS ORDERED: KETAMINE 50mg/ML 10ml Vial 10 ML ONE (18:42)
[2024-03-17] MEDS ORDERED: ONDANSETRON HCL 4 MG/2 ML VIAL ONE (18:42)
[2024-03-17] MEDS ORDERED: MIDAZOLAM HCL 2MG/2ML 2ml VIAL (1mg/ml) ONE (18:42)
[2024-03-17] MEDS ORDERED: GLYCOPYRROLATE 0.2 MG/ML 1ML VIAL ONE (18:42)
[2024-03-17] MEDS ORDERED: PROPOFOL 10 MG/ML 20 ML IV ONE (18:42)
[2024-03-17] MEDS ORDERED: HYDROmorphone HCL 2 MG/ML VL/or syr IV PRN (20:00)
[2024-03-17] MEDS: fentaNYL CITRATE 100 MCG/2 ML VL IV PRN (20:05)
[2024-03-17] MEDS: POTASSIUM EFFERVESENT TAB 25 MEQ PO ONE (20:45)
[2024-03-17] MEDS: POTASSIUM CHLORIDE 60 MEQ, LIDOCAINE 1% (LOCAL ANESTH.) 6 ML in SODIUM CHL 0.9% 500 ML IV ONE (22:22)
[2024-03-18] MEDS: MAGNESIUM SULFATE 1GM/100ML 100 ML IV ONE ×2 (04:22→05:35)
[2024-03-18 05:00] VITALS: BP 103/51; PULSE 69; RESP 18; TEMP 97.8; O2SAT 97
[2024-03-18 07:14] LABS: Anion Gap 7 (5-15); Carbon Dioxide 32 mmol/L (20-30); Chloride 100 mmol/L (98-107); Potassium 3.8 mmol/L (3.5-5.1); Sodium 139 mmol/L (136-145)
[2024-03-18 07:17] LABS: Glucose 67 mg/dL (74-106)
[2024-03-18 07:18] LABS: Blood Urea Nitrogen 10 mg/dL (9-23); Magnesium 2.1 mg/dL (1.6-2.6)
[2024-03-18 07:30] LABS: Basophils # (auto) 0 10 ^3/uL (0-0.2); Basophils % (auto) 0.3 % (0.0-2.0); Eosinophils # (auto) 0.1 10 ^3/uL (0-0.8); Eosinophils % (auto) 0.8 % (0.0-7.0); Hematocrit 27.8 % (36.0-46.0); Hemoglobin 9.3 g/dL (12.2-16.2); Lymphocytes # (auto) 0.7 10 ^3/uL (0.4-5.4); Lymphocytes % (auto) 8.5 % (10.0-50.0); Mean Corpuscular Hemoglobin 28.6 pg (28.0-32.0); Mean Corpuscular Hgb Conc. 33.4 g/dL (32.0-36.0); Mean Corpuscular Volume 85.5 fL (80.0-100.0); Monocytes # (auto) 0.3 10 ^3/uL (0-1.3); Monocytes % (auto) 3.3 % (0.0-12.0); Neutrophils # (auto) 7.1 10 ^3/uL (1.6-8.6); Neutrophils % (auto) 87.1 % (37.0-80.0); Nucleated Red Blood Cells % 0.1 %; Platelet Count (auto) 413 10^3/uL (140-450); Red Blood Cells 3.25 10^6/uL (4.0-5.20); Red Cell Distribution Width 17.3 % (11.8-14.3); White Blood Cell 8.2 10^3/uL (4.4-10.8)
[2024-03-18 08:20] VITALS: PULSE 77; RESP 18; O2SAT 95
[2024-03-18 10:00] VITALS: O2SAT 95
[2024-03-18 11:41] VITALS: BP 111/61; PULSE 70; RESP 18; TEMP 98.4; O2SAT 93
[2024-03-18 17:00] VITALS: BP 104/53; PULSE 69; RESP 16; TEMP 98; O2SAT 93
[2024-03-18 21:32] VITALS: BP 104/50; PULSE 80; RESP 18; TEMP 97.9; O2SAT 94
[2024-03-19] VITALS (9 sets, daily range): BP systolic 102–131; BP diastolic 56–74; PULSE 67–90; RESP 15–20; TEMP 97.5–98.3; O2SAT 88–95
[2024-03-19 07:04] LABS: Chloride 99 mmol/L (98-107); Potassium 2.8 mmol/L (3.5-5.1); Sodium 137 mmol/L (136-145)
[2024-03-19 07:05] LABS: Anion Gap 1 (5-15); Carbon Dioxide 37 mmol/L (20-31)
[2024-03-19 07:10] LABS: BUN/Creatinine Ratio 27.5 (10.0-20.0); Blood Urea Nitrogen 11 mg/dL (9-23); Glucose 74 mg/dL (74-106); Magnesium 2.2 mg/dL (1.6-2.6)
[2024-03-19 07:11] LABS: Hematocrit 26.3 % (36.0-46.0); Hemoglobin 8.8 g/dL (12.2-16.2); Mean Corpuscular Hemoglobin 28.3 pg (28.0-32.0); Mean Corpuscular Hgb Conc. 33.3 g/dL (32.0-36.0); Mean Corpuscular Volume 85.1 fL (80.0-100.0); Platelet Count (auto) 372 10^3/uL (140-450); Red Blood Cells 3.09 10^6/uL (4.0-5.20); Red Cell Distribution Width 16.9 % (11.8-14.3); White Blood Cell 7.1 10^3/uL (4.4-10.8)
[2024-03-19 07:16] LABS: Basophils % (manual) 0 (0.0-2.0); Blast Cells 0; Eosinophils % (manual) 0 (0-7); Metamyelocytes % 0; Myelocytes % 0; Promyelocytes % 0; Reactive Lymphocytes 0
[2024-03-19 07:42] LABS: Band Neutrophils % (manual) 8; Lymphocytes % (manual) 14 (10.0-50.0); Monocytes % (manual) 3 (0-12)
[2024-03-19 07:43] LABS: Platelet Estimate Adequate
[2024-03-19] MEDS: POTASSIUM CHL 20 Meq TABLET PO ONE ×2 (08:31→17:24)
[2024-03-20] VITALS (11 sets, daily range): BP systolic 109–132; BP diastolic 60–71; PULSE 62–109; RESP 16–22; TEMP 97.9–98.7; O2SAT 72–96
[2024-03-20 07:27] LABS: Hematocrit 25.3 % (36.0-46.0); Hemoglobin 8.6 g/dL (12.2-16.2); Mean Corpuscular Hemoglobin 29.1 pg (28.0-32.0); Mean Corpuscular Hgb Conc. 34.1 g/dL (32.0-36.0); Mean Corpuscular Volume 85.4 fL (80.0-100.0); Platelet Count (auto) 343 10^3/uL (140-450); Red Blood Cells 2.96 10^6/uL (4.0-5.20); Red Cell Distribution Width 16.9 % (11.8-14.3); White Blood Cell 8.9 10^3/uL (4.4-10.8)
[2024-03-20 07:34] LABS: Basophils % (manual) 0 (0.0-2.0); Blast Cells 0; Metamyelocytes % 0; Myelocytes % 0; Promyelocytes % 0; Reactive Lymphocytes 0
[2024-03-20 07:44] LABS: Albumin 2.4 g/dL (3.2-4.8); Alkaline Phosphatase 89 U/L (46-116); Anion Gap 4 (5-15); Aspartate Aminotransferase 14 U/L (13-40); BUN/Creatinine Ratio 30.2 (10.0-20.0); Blood Urea Nitrogen 13 mg/dL (9-23); Calcium 8.5 mg/dL (8.7-10.4); Carbon Dioxide 37 mmol/L (20-31); Chloride 96 mmol/L (98-107); Glucose 78 mg/dL (74-106); Potassium 3.6 mmol/L (3.5-5.1); Sodium 137 mmol/L (136-145)
[2024-03-20 07:45] LABS: Alanine Aminotransferase < 9 U/L (7-40); Bilirubin, Total 0.5 mg/dL (0.2-1.0); Total Protein 4.8 g/dL (5.7-8.2)
[2024-03-20 08:06] LABS: Band Neutrophils % (manual) 11; Eosinophils % (manual) 1 (0-7); Lymphocytes % (manual) 12 (10.0-50.0); Monocytes % (manual) 3 (0-12)
[2024-03-20 08:07] LABS: Platelet Estimate Adequate; Stomatocytes Few
[2024-03-20] MEDS: POTASSIUM CHL 20 Meq TABLET PO SCH (11:10)
[2024-03-21] VITALS (9 sets, daily range): BP systolic 116–144; BP diastolic 63–72; PULSE 75–90; RESP 15–18; TEMP 97.6–98.6; O2SAT 90–95
[2024-03-21 08:04] LABS: Basophils # (auto) 0 10 ^3/uL (0-0.2); Basophils % (auto) 0.3 % (0.0-2.0); Eosinophils # (auto) 0.1 10 ^3/uL (0-0.8); Hemoglobin 7.9 g/dL (12.2-16.2); Lymphocytes # (auto) 0.8 10 ^3/uL (0.4-5.4); Mean Corpuscular Hemoglobin 28.2 pg (28.0-32.0); Mean Corpuscular Hgb Conc. 32.7 g/dL (32.0-36.0); Monocytes # (auto) 0.2 10 ^3/uL (0-1.3); Neutrophils # (auto) 6.2 10 ^3/uL (1.6-8.6); White Blood Cell 7.3 10^3/uL (4.4-10.8)
[2024-03-21 08:06] LABS: Eosinophils % (auto) 0.9 % (0.0-7.0); Hematocrit 24.2 % (36.0-46.0); Lymphocytes % (auto) 11.1 % (10.0-50.0); Mean Corpuscular Volume 86.2 fL (80.0-100.0); Monocytes % (auto) 3.2 % (0.0-12.0); Neutrophils % (auto) 84.5 % (37.0-80.0); Platelet Count (auto) 329 10^3/uL (140-450); Red Cell Distribution Width 17.1 % (11.8-14.3)
[2024-03-21 08:14] LABS: Chloride 102 mmol/L (98-107); Sodium 140 mmol/L (136-145)
[2024-03-21 08:15] LABS: Anion Gap 8 (5-15); Calcium 7.1 mg/dL (8.7-10.4); Carbon Dioxide 30 mmol/L (20-31)
[2024-03-21 08:20] LABS: BUN/Creatinine Ratio 28.6 (10.0-20.0); Blood Urea Nitrogen 10 mg/dL (9-23); Glucose 70 mg/dL (74-106); Magnesium 1.9 mg/dL (1.6-2.6)
[2024-03-21 08:29] LABS: Potassium 2.5 mmol/L (3.5-5.1)
[2024-03-21] MEDS: POTASSIUM CHL 20 Meq TABLET PO ONE (09:39)
[2024-03-21] MEDS: POTASSIUM EFFERVESENT TAB 25 MEQ PO ONE (11:01)
[2024-03-21] MEDS: POTASSIUM CHL 20 Meq TABLET PO SCH (21:52)
[2024-03-22] VITALS (9 sets, daily range): BP systolic 114–163; BP diastolic 54–66; PULSE 77–101; RESP 16–20; TEMP 97.2–97.9; O2SAT 90–94
[2024-03-22 11:18] LABS: Basophils # (auto) 0 10 ^3/uL (0-0.2); Basophils % (auto) 0.3 % (0.0-2.0); Eosinophils # (auto) 0.1 10 ^3/uL (0-0.8); Eosinophils % (auto) 0.7 % (0.0-7.0); Hematocrit 29.6 % (36.0-46.0); Hemoglobin 9.7 g/dL (12.2-16.2); Lymphocytes % (auto) 10.6 % (10.0-50.0); Mean Corpuscular Hemoglobin 28.1 pg (28.0-32.0); Mean Corpuscular Hgb Conc. 32.7 g/dL (32.0-36.0); Monocytes # (auto) 0.2 10 ^3/uL (0-1.3); Monocytes % (auto) 2.7 % (0.0-12.0); Neutrophils % (auto) 85.7 % (37.0-80.0); Nucleated Red Blood Cells % 0.1 %; Platelet Count (auto) 404 10^3/uL (140-450); Red Blood Cells 3.44 10^6/uL (4.0-5.20); White Blood Cell 9.3 10^3/uL (4.4-10.8)
[2024-03-22 11:34] LABS: Chloride 96 mmol/L (98-107); Potassium 3.6 mmol/L (3.5-5.1); Sodium 138 mmol/L (136-145)
[2024-03-22 11:35] LABS: Anion Gap 7 (5-15); Carbon Dioxide 35 mmol/L (20-31)
[2024-03-22 11:41] LABS: BUN/Creatinine Ratio 24.1 (10.0-20.0); Blood Urea Nitrogen 13 mg/dL (9-23); Glucose 88 mg/dL (74-106)
[2024-03-23] VITALS (9 sets, daily range): BP systolic 112–130; BP diastolic 63–79; PULSE 71–92; RESP 16–20; TEMP 97.3–98.7; O2SAT 90–95
[2024-03-23 06:01] LABS: Anion Gap 6 (5-15); Carbon Dioxide 32 mmol/L (20-31); Chloride 98 mmol/L (98-107); Potassium 3.6 mmol/L (3.5-5.1); Sodium 136 mmol/L (136-145)
[2024-03-23 06:02] LABS: Calcium 9.1 mg/dL (8.7-10.4)
[2024-03-23 06:06] LABS: Glucose 82 mg/dL (74-106)
[2024-03-23 06:07] LABS: Blood Urea Nitrogen 13 mg/dL (9-23); Magnesium 2.7 mg/dL (1.6-2.6)
[2024-03-23 06:46] LABS: Hematocrit 29.7 % (36.0-46.0); Hemoglobin 9.6 g/dL (12.2-16.2); Mean Corpuscular Hgb Conc. 32.5 g/dL (32.0-36.0); Mean Corpuscular Volume 86.3 fL (80.0-100.0); Platelet Count (auto) 438 10^3/uL (140-450); Red Blood Cells 3.44 10^6/uL (4.0-5.20); Red Cell Distribution Width 17.2 % (11.8-14.3); White Blood Cell 9.9 10^3/uL (4.4-10.8)
[2024-03-23 07:15] LABS: Basophils % (manual) 0 (0.0-2.0); Blast Cells 0; Myelocytes % 0; Promyelocytes % 0; Reactive Lymphocytes 0
[2024-03-23 09:28] LABS: Band Neutrophils % (manual) 10; Eosinophils % (manual) 1 (0-7); Lymphocytes % (manual) 14 (10.0-50.0); Metamyelocytes % 3; Monocytes % (manual) 4 (0-12)
[2024-03-23 09:29] LABS: Platelet Estimate Adequate
[2024-03-24] VITALS (9 sets, daily range): BP systolic 110–130; BP diastolic 60–76; PULSE 77–89; RESP 16–20; TEMP 96.8–98.9; O2SAT 80–95
[2024-03-24 07:06] LABS: Calcium 9.1 mg/dL (8.7-10.4); Chloride 96 mmol/L (98-107); Potassium 3.5 mmol/L (3.5-5.1); Sodium 136 mmol/L (136-145)
[2024-03-24 07:07] LABS: Anion Gap 7 (5-15); Carbon Dioxide 33 mmol/L (20-31)
[2024-03-24 07:12] LABS: BUN/Creatinine Ratio 30.4 (10.0-20.0); Blood Urea Nitrogen 21 mg/dL (9-23); Glucose 94 mg/dL (74-106)
[2024-03-24 07:13] LABS: Magnesium 2.5 mg/dL (1.6-2.6)
[2024-03-24 07:52] LABS: Basophils # (auto) 0 10 ^3/uL (0-0.2); Eosinophils # (auto) 0.1 10 ^3/uL (0-0.8); Hemoglobin 9.4 g/dL (12.2-16.2); Lymphocytes # (auto) 1.3 10 ^3/uL (0.4-5.4); Monocytes # (auto) 0.3 10 ^3/uL (0-1.3); White Blood Cell 10.2 10^3/uL (4.4-10.8)
[2024-03-24 07:56] LABS: Basophils % (auto) 0.3 % (0.0-2.0); Eosinophils % (auto) 1.1 % (0.0-7.0); Lymphocytes % (auto) 12.7 % (10.0-50.0); Mean Corpuscular Hgb Conc. 34.9 g/dL (32.0-36.0); Mean Corpuscular Volume 86.1 fL (80.0-100.0); Monocytes % (auto) 2.7 % (0.0-12.0); Neutrophils # (auto) 8.4 10 ^3/uL (1.6-8.6); Neutrophils % (auto) 83.2 % (37.0-80.0); Platelet Count (auto) 462 10^3/uL (140-450); Red Blood Cells 3.14 10^6/uL (4.0-5.20); Red Cell Distribution Width 17.1 % (11.8-14.3)
[2024-03-25] VITALS (8 sets, daily range): BP systolic 110–123; BP diastolic 65–69; PULSE 78–93; RESP 16–18; TEMP 97.2–99; O2SAT 90–98
[2024-03-25 13:56] LABS: Chloride 97 mmol/L (98-107); Potassium 3.7 mmol/L (3.5-5.1); Sodium 136 mmol/L (136-145)
[2024-03-25 13:57] LABS: Anion Gap 8 (5-15); Calcium 9.4 mg/dL (8.7-10.4); Carbon Dioxide 31 mmol/L (20-31)
[2024-03-25 13:59] LABS: Hemoglobin 9.2 g/dL (12.2-16.2)
[2024-03-25 14:00] LABS: Hematocrit 27.5 % (36.0-46.0); Mean Corpuscular Hemoglobin 28.9 pg (28.0-32.0); Mean Corpuscular Hgb Conc. 33.4 g/dL (32.0-36.0); Mean Corpuscular Volume 86.4 fL (80.0-100.0); Platelet Count (auto) 557 10^3/uL (140-450); Red Blood Cells 3.18 10^6/uL (4.0-5.20); Red Cell Distribution Width 17.1 % (11.8-14.3); White Blood Cell 13.4 10^3/uL (4.4-10.8)
[2024-03-25 14:02] LABS: Glucose 80 mg/dL (74-106)
[2024-03-25 14:04] LABS: Creatine Kinase IFCC 99 U/L (34-145)
[2024-03-25 14:08] LABS: Band Neutrophils % (manual) 0; Basophils % (manual) 0 (0.0-2.0); Blast Cells 0; Monocytes % (manual) 0 (0-12); Promyelocytes % 0; Reactive Lymphocytes 0
[2024-03-25 14:38] LABS: Eosinophils % (manual) 2 (0-7); Lymphocytes % (manual) 10 (10.0-50.0); Metamyelocytes % 1; Myelocytes % 1; Platelet Estimate Increased
[2024-03-25 15:16] LABS: BUN/Creatinine Ratio 29.6 (10.0-20.0); Blood Urea Nitrogen 21 mg/dL (9-23)
[2024-03-26] VITALS (8 sets, daily range): BP systolic 112–126; BP diastolic 62–68; PULSE 79–92; RESP 16–20; TEMP 97.1–97.8; O2SAT 88–95
[2024-03-26 06:50] LABS: Basophils # (auto) 0 10 ^3/uL (0-0.2); Basophils % (auto) 0.3 % (0.0-2.0); Eosinophils # (auto) 0.1 10 ^3/uL (0-0.8); Hemoglobin 9.6 g/dL (12.2-16.2); Lymphocytes # (auto) 0.8 10 ^3/uL (0.4-5.4); Lymphocytes % (auto) 5.6 % (10.0-50.0); Monocytes # (auto) 0.4 10 ^3/uL (0-1.3); Neutrophils % (auto) 90.6 % (37.0-80.0); Red Cell Distribution Width 17.5 % (11.8-14.3)
[2024-03-26 06:54] LABS: Eosinophils % (auto) 0.5 % (0.0-7.0); Hematocrit 28.7 % (36.0-46.0); Mean Corpuscular Hemoglobin 28.8 pg (28.0-32.0); Mean Corpuscular Hgb Conc. 33.4 g/dL (32.0-36.0); Mean Corpuscular Volume 86.3 fL (80.0-100.0); Neutrophils # (auto) 12.6 10 ^3/uL (1.6-8.6); Nucleated Red Blood Cells % 0.1 %; Platelet Count (auto) 613 10^3/uL (140-450); Red Blood Cells 3.33 10^6/uL (4.0-5.20); White Blood Cell 13.9 10^3/uL (4.4-10.8)
[2024-03-26 06:57] LABS: Blood Urea Nitrogen 20 mg/dL (9-23)
[2024-03-26 07:24] LABS: Chloride 98 mmol/L (98-107); Sodium 136 mmol/L (136-145)
[2024-03-26 07:25] LABS: Anion Gap 10 (5-15); Carbon Dioxide 28 mmol/L (20-31)
[2024-03-26 07:26] LABS: Calcium 9.8 mg/dL (8.7-10.4)
[2024-03-26 07:30] LABS: BUN/Creatinine Ratio 28.2 (10.0-20.0); Glucose 95 mg/dL (74-106)
[2024-03-26] MEDS ORDERED: VANCOMYCIN PER PHARMACY 0 MG IV SCH (17:45)
[2024-03-26] MEDS ORDERED: ALBUTEROL SULF 2.5 MG/0.5ML(0.5%) NEB SOLN NEB PRN (20:45)
[2024-03-26] MEDS ORDERED: IPRATROPIUM BROM 0.5 MG/2.5ML INH SOL NEB PRN (20:45)
[2024-03-26] MEDS: DOXYCYCLINE 100 MG TAB/CAP PO SCH (22:03)
[2024-03-27] VITALS (13 sets, daily range): BP systolic 94–122; BP diastolic 59–72; PULSE 74–85; RESP 16–18; TEMP 97.1–98; O2SAT 90–98
[2024-03-27] MEDS: VANCOMYCIN 1.25GM/250ML 250 ML IV ONE (02:26)
[2024-03-27 09:12] LABS: Mean Corpuscular Hemoglobin 28.8 pg (28.0-32.0)
[2024-03-27 09:14] LABS: Hematocrit 28.3 % (36.0-46.0); Hemoglobin 9.3 g/dL (12.2-16.2); Mean Corpuscular Hgb Conc. 32.9 g/dL (32.0-36.0); Mean Corpuscular Volume 87.4 fL (80.0-100.0); Platelet Count (auto) 605 10^3/uL (140-450); Red Blood Cells 3.24 10^6/uL (4.0-5.20); Red Cell Distribution Width 17.5 % (11.8-14.3); White Blood Cell 13.5 10^3/uL (4.4-10.8)
[2024-03-27 09:17] LABS: Basophils % (manual) 0 (0.0-2.0); Blast Cells 0; Promyelocytes % 0; Reactive Lymphocytes 0
[2024-03-27 09:19] LABS: Chloride 100 mmol/L (98-107); Potassium 3.7 mmol/L (3.5-5.1); Sodium 137 mmol/L (136-145)
[2024-03-27 09:20] LABS: Anion Gap 8 (5-15); Carbon Dioxide 29 mmol/L (20-31)
[2024-03-27 09:21] LABS: Calcium 9.8 mg/dL (8.7-10.4)
[2024-03-27 09:25] LABS: Glucose 86 mg/dL (74-106)
[2024-03-27 09:26] LABS: Blood Urea Nitrogen 24 mg/dL (9-23)
[2024-03-27 09:37] LABS: Band Neutrophils % (manual) 5; Eosinophils % (manual) 1 (0-7); Lymphocytes % (manual) 11 (10.0-50.0); Metamyelocytes % 2; Monocytes % (manual) 6 (0-12); Myelocytes % 1
[2024-03-27 09:38] LABS: Anisocytosis Slight; Platelet Estimate Increased
[2024-03-27] MEDS: VANCOMYCIN 1GM/250ML 200 ML IV SCH (11:00)
[2024-03-28] VITALS (10 sets, daily range): BP systolic 98–109; BP diastolic 58–71; PULSE 69–80; RESP 16–20; TEMP 97–99.1; O2SAT 96–99
[2024-03-28] MEDS: fentaNYL CITRATE 100 MCG/2 ML VL ONE (03:56)
[2024-03-28] MEDS: ceFAZolin 1GM/50ML 0 ML IV ONE (03:56)
[2024-03-28] MEDS: LIDOCAINE 1% HCL (LOCAL ANESTH.) INJ 20ML MDV ONE (03:56)
[2024-03-28 08:10] LABS: Eosinophils # (auto) 0.2 10 ^3/uL (0-0.8); Hemoglobin 8.9 g/dL (12.2-16.2); Lymphocytes # (auto) 1.1 10 ^3/uL (0.4-5.4); Red Cell Distribution Width 17.3 % (11.8-14.3); White Blood Cell 9.9 10^3/uL (4.4-10.8)
[2024-03-28 08:13] LABS: Basophils # (auto) 0.1 10 ^3/uL (0-0.2); Basophils % (auto) 0.6 % (0.0-2.0); Hematocrit 26.7 % (36.0-46.0); Lymphocytes % (auto) 11.6 % (10.0-50.0); Mean Corpuscular Hgb Conc. 33.2 g/dL (32.0-36.0); Mean Corpuscular Volume 87.2 fL (80.0-100.0); Monocytes # (auto) 0.4 10 ^3/uL (0-1.3); Monocytes % (auto) 3.9 % (0.0-12.0); Neutrophils # (auto) 8.1 10 ^3/uL (1.6-8.6); Neutrophils % (auto) 81.9 % (37.0-80.0); Platelet Count (auto) 641 10^3/uL (140-450); Red Blood Cells 3.06 10^6/uL (4.0-5.20)
[2024-03-28 08:15] LABS: Chloride 99 mmol/L (98-107); Potassium 2.8 mmol/L (3.5-5.1); Sodium 137 mmol/L (136-145)
[2024-03-28 08:16] LABS: Anion Gap 10 (5-15); Calcium 9.8 mg/dL (8.7-10.4); Carbon Dioxide 28 mmol/L (20-31)
[2024-03-28 08:21] LABS: BUN/Creatinine Ratio 34.7 (10.0-20.0); Blood Urea Nitrogen 26 mg/dL (9-23)
[2024-03-28 08:51] LABS: Glucose 87 mg/dL (74-106)
[2024-03-28 09:02] LABS: Phosphorus 4.4 mg/dL (2.4-5.1)
[2024-03-28] MEDS: POTASSIUM EFFERVESENT TAB 25 MEQ PO ONE (11:40)
[2024-03-29] VITALS (10 sets, daily range): BP systolic 101–112; BP diastolic 62–77; PULSE 69–89; RESP 17–21; TEMP 97.3–98.8; O2SAT 6–97
[2024-03-29 05:55] LABS: Anion Gap 7 (5-15); Calcium 9.7 mg/dL (8.7-10.4); Carbon Dioxide 30 mmol/L (20-31); Chloride 101 mmol/L (98-107); Potassium 3.5 mmol/L (3.5-5.1); Sodium 138 mmol/L (136-145)
[2024-03-29 06:00] LABS: Glucose 79 mg/dL (74-106)
[2024-03-29 06:01] LABS: Blood Urea Nitrogen 24 mg/dL (9-23)
[2024-03-29] MEDS: FUROSEMIDE 40 MG/4 ML VIAL IV SCH (18:00)
[2024-03-30] VITALS (9 sets, daily range): BP systolic 101–114; BP diastolic 67–76; PULSE 72–89; RESP 16–20; TEMP 97–97.5; O2SAT 91–99
[2024-03-30 07:28] LABS: Chloride 98 mmol/L (98-107); Potassium 3.2 mmol/L (3.5-5.1); Sodium 137 mmol/L (136-145)
[2024-03-30 07:29] LABS: Anion Gap 10 (5-15); Calcium 10.5 mg/dL (8.7-10.4); Carbon Dioxide 29 mmol/L (20-31)
[2024-03-30 07:34] LABS: BUN/Creatinine Ratio 30.8 (10.0-20.0); Blood Urea Nitrogen 28 mg/dL (9-23); Glucose 93 mg/dL (74-106)
[2024-03-30 07:36] LABS: Hematocrit 28.2 % (36.0-46.0); Hemoglobin 9.3 g/dL (12.2-16.2); Mean Corpuscular Hemoglobin 28.6 pg (28.0-32.0); Mean Corpuscular Volume 86.9 fL (80.0-100.0); Platelet Count (auto) 711 10^3/uL (140-450); Red Blood Cells 3.25 10^6/uL (4.0-5.20); Red Cell Distribution Width 17.6 % (11.8-14.3); White Blood Cell 12.6 10^3/uL (4.4-10.8)
[2024-03-30 07:43] LABS: Basophils % (manual) 0 (0.0-2.0); Blast Cells 0; Promyelocytes % 0; Reactive Lymphocytes 0
[2024-03-30 09:05] LABS: Band Neutrophils % (manual) 2; Eosinophils % (manual) 1 (0-7); Lymphocytes % (manual) 12 (10.0-50.0); Metamyelocytes % 1; Monocytes % (manual) 8 (0-12); Myelocytes % 2; Platelet Estimate Increased
[2024-03-30] MEDS: POTASSIUM CHLORIDE 40 MEQ, LIDOCAINE 1% (LOCAL ANESTH.) 4 ML in SODIUM CHL 0.9% 250 ML IV ONE (10:22)
[2024-03-30] MEDS: SERTRALINE HCL 50 MG TAB PO ONE (11:00)
[2024-03-30] MEDS: D5W 5% IV SCH (19:57)
[2024-03-30] MEDS: VORICONAZOLE IV SCH (19:57)
[2024-03-30] MEDS: DAPTOmycin 400 MG in SODIUM CHL 0.9% 50 ML IV SCH (22:33)
[2024-03-31] VITALS (9 sets, daily range): BP systolic 107–116; BP diastolic 67–74; PULSE 74–88; RESP 16–20; TEMP 97–98.1; O2SAT 93–98
[2024-03-31 07:46] LABS: Hemoglobin 8.9 g/dL (12.2-16.2)
[2024-03-31 07:47] LABS: Calcium 10.7 mg/dL (8.7-10.4); Chloride 100 mmol/L (98-107); Potassium 3.4 mmol/L (3.5-5.1); Sodium 137 mmol/L (136-145)
[2024-03-31 07:48] LABS: Anion Gap 9 (5-15); Carbon Dioxide 28 mmol/L (20-31)
[2024-03-31 07:53] LABS: BUN/Creatinine Ratio 30.2 (10.0-20.0); Blood Urea Nitrogen 29 mg/dL (9-23); Glucose 84 mg/dL (74-106); Magnesium 2.2 mg/dL (1.6-2.6)
[2024-03-31 07:59] LABS: Hematocrit 27.6 % (36.0-46.0); Mean Corpuscular Hemoglobin 28.4 pg (28.0-32.0); Mean Corpuscular Hgb Conc. 32.4 g/dL (32.0-36.0); Mean Corpuscular Volume 87.7 fL (80.0-100.0); Platelet Count (auto) 702 10^3/uL (140-450); Red Blood Cells 3.14 10^6/uL (4.0-5.20); Red Cell Distribution Width 18.2 % (11.8-14.3); White Blood Cell 12.7 10^3/uL (4.4-10.8)
[2024-03-31 08:02] LABS: Band Neutrophils % (manual) 0; Basophils % (manual) 0 (0.0-2.0); Blast Cells 0; Eosinophils % (manual) 0 (0-7); Myelocytes % 0; Promyelocytes % 0; Reactive Lymphocytes 0
[2024-03-31 08:36] LABS: Lymphocytes % (manual) 4 (10.0-50.0); Metamyelocytes % 1; Monocytes % (manual) 11 (0-12); Platelet Estimate Increased
[2024-03-31] MEDS: SERTRALINE HCL 50 MG TAB PO SCH (10:44)
[2024-03-31] MEDS: POTASSIUM CHLORIDE 40 MEQ, LIDOCAINE 1% (LOCAL ANESTH.) 4 ML in SODIUM CHL 0.9% 250 ML IV ONE (12:50)
[2024-03-31] MEDS: VORICONAZOLE IV SCH (20:08)
[2024-03-31] MEDS: D5W 5% IV SCH (20:08)
[2024-04-01] VITALS (9 sets, daily range): BP systolic 95–110; BP diastolic 58–68; PULSE 68–78; RESP 16–22; TEMP 97.5–98.7; O2SAT 93–98
[2024-04-01 10:29] LABS: Red Blood Cells 3.22 10^6/uL (4.0-5.20)
[2024-04-01 10:33] LABS: Hematocrit 27.9 % (36.0-46.0); Hemoglobin 9.1 g/dL (12.2-16.2); Mean Corpuscular Hemoglobin 28.3 pg (28.0-32.0); Mean Corpuscular Hgb Conc. 32.6 g/dL (32.0-36.0); Mean Corpuscular Volume 86.8 fL (80.0-100.0); Platelet Count (auto) 652 10^3/uL (140-450); White Blood Cell 11.6 10^3/uL (4.4-10.8)
[2024-04-01 10:34] LABS: Chloride 99 mmol/L (98-107); Potassium 3.1 mmol/L (3.5-5.1); Sodium 137 mmol/L (136-145)
[2024-04-01 10:35] LABS: Anion Gap 7 (5-15); Carbon Dioxide 31 mmol/L (20-31)
[2024-04-01 10:36] LABS: Calcium 10.2 mg/dL (8.7-10.4)
[2024-04-01 10:39] LABS: Basophils % (manual) 0 (0.0-2.0); Blast Cells 0; Eosinophils % (manual) 0 (0-7); Promyelocytes % 0; Reactive Lymphocytes 0
[2024-04-01 10:40] LABS: BUN/Creatinine Ratio 31.2 (10.0-20.0); Blood Urea Nitrogen 24 mg/dL (9-23); Glucose 106 mg/dL (74-106)
[2024-04-01 12:06] LABS: Band Neutrophils % (manual) 5; Lymphocytes % (manual) 6 (10.0-50.0); Metamyelocytes % 3; Monocytes % (manual) 8 (0-12); Myelocytes % 1; Platelet Estimate Increased
[2024-04-01] MEDS: HYDROcodone-ACET 5/325MG TAB PO PRN (12:59)
[2024-04-01] MEDS ORDERED: POTASSIUM CHLORIDE 40 MEQ, LIDOCAINE 1% (LOCAL ANESTH.) 4 ML in SODIUM CHL 0.9% 250 ML IV ONE (18:45)
[2024-04-01] MEDS: POTASSIUM CHLORIDE 40 MEQ, LIDOCAINE 1% (LOCAL ANESTH.) 4 ML in SODIUM CHL 0.9% 250 ML IV ONE (22:15)
[2024-04-02 05:00] VITALS: BP 101/58; PULSE 74; RESP 20; TEMP 98.6; O2SAT 95
[2024-04-02 08:00] VITALS: BP 103/65; PULSE 78; PULSE 86; RESP 20; TEMP 97.4; O2SAT 95
[2024-04-02 10:00] VITALS: O2SAT 97
[2024-04-02 12:00] VITALS: BP 107/65; PULSE 85; RESP 20; TEMP 97.1; O2SAT 91
[2024-04-02 14:33] LABS: Hematocrit 30.8 % (36.0-46.0); Hemoglobin 9.9 g/dL (12.2-16.2); Mean Corpuscular Hemoglobin 28.1 pg (28.0-32.0); Mean Corpuscular Volume 87.9 fL (80.0-100.0); Platelet Count (auto) 594 10^3/uL (140-450); Red Blood Cells 3.51 10^6/uL (4.0-5.20); Red Cell Distribution Width 18.4 % (11.8-14.3); White Blood Cell 12.1 10^3/uL (4.4-10.8)
[2024-04-02 14:41] LABS: Basophils % (manual) 0 (0.0-2.0); Blast Cells 0; Metamyelocytes % 0; Promyelocytes % 0; Reactive Lymphocytes 0
[2024-04-02 14:43] LABS: Chloride 100 mmol/L (98-107); Potassium 3.3 mmol/L (3.5-5.1); Sodium 136 mmol/L (136-145)
[2024-04-02 14:44] LABS: Anion Gap 6 (5-15); Carbon Dioxide 30 mmol/L (20-31)
[2024-04-02 14:45] LABS: Calcium 10.1 mg/dL (8.7-10.4)
[2024-04-02 14:50] LABS: BUN/Creatinine Ratio 24.3 (10.0-20.0); Blood Urea Nitrogen 18 mg/dL (9-23); Glucose 85 mg/dL (74-106)
[2024-04-02 14:52] LABS: Band Neutrophils % (manual) 12; Eosinophils % (manual) 1 (0-7); Lymphocytes % (manual) 9 (10.0-50.0); Monocytes % (manual) 3 (0-12); Myelocytes % 1; Platelet Estimate Increased
[2024-04-02 16:00] VITALS: BP 115/66; PULSE 80; RESP 16; TEMP 97.7; O2SAT 93
[2024-04-02] MEDS: POTASSIUM CHLORIDE 40 MEQ, LIDOCAINE 1% (LOCAL ANESTH.) 4 ML in SODIUM CHL 0.9% 250 ML IV ONE (16:15)
[2024-04-02 20:00] VITALS: PULSE 78; PULSE 83; RESP 16
[2024-04-03 01:00] VITALS: BP 114/69; PULSE 86; RESP 18; TEMP 86; O2SAT 94
[2024-04-03 05:00] VITALS: BP 115/74; PULSE 82; RESP 18; TEMP 98.4; O2SAT 98
[2024-04-03 08:00] VITALS: PULSE 80; PULSE 88; RESP 17
[2024-04-03 08:40] VITALS: BP 119/76; PULSE 88; RESP 19; TEMP 98.8; O2SAT 90
[2024-04-03 10:00] VITALS: O2SAT 5; O2SAT 96
[2024-04-03 10:09] LABS: Hemoglobin 9.7 g/dL (12.2-16.2)
[2024-04-03 10:11] LABS: Hematocrit 30.1 % (36.0-46.0); Mean Corpuscular Hemoglobin 28.3 pg (28.0-32.0); Mean Corpuscular Hgb Conc. 32.1 g/dL (32.0-36.0); Platelet Count (auto) 566 10^3/uL (140-450); Red Blood Cells 3.42 10^6/uL (4.0-5.20); Red Cell Distribution Width 18.3 % (11.8-14.3); White Blood Cell 13.5 10^3/uL (4.4-10.8)
[2024-04-03 10:12] LABS: Basophils % (manual) 0 (0.0-2.0); Blast Cells 0; Eosinophils % (manual) 0 (0-7); Metamyelocytes % 0; Promyelocytes % 0; Reactive Lymphocytes 0
[2024-04-03 10:25] LABS: Chloride 100 mmol/L (98-107); Sodium 137 mmol/L (136-145)
[2024-04-03 10:26] LABS: Anion Gap 8 (5-15); Carbon Dioxide 29 mmol/L (20-31)
[2024-04-03 10:27] LABS: Calcium 10.2 mg/dL (8.7-10.4)
[2024-04-03 10:32] LABS: Blood Urea Nitrogen 21 mg/dL (9-23); Glucose 125 mg/dL (74-106)
[2024-04-03 11:07] LABS: Band Neutrophils % (manual) 21; Lymphocytes % (manual) 13 (10.0-50.0); Monocytes % (manual) 1 (0-12); Myelocytes % 3; Platelet Estimate Increased
[2024-04-03 11:33] VITALS: BP 119/76; PULSE 88; RESP 19; TEMP 98.8; O2SAT 96
[2024-04-03] MEDS ORDERED: D5W 5% IV SCH (14:15)
[2024-04-03] MEDS ORDERED: VORICONAZOLE IV SCH (14:15)
== END 2024-04-03 13:00 | DRG 853 ==
LOC: ER 23:49 → TELE 02-29 09:38 → TELE-WESTW 02-29 21:30 → WEST WING 03-09 01:10 → TELE-WESTW 03-16 22:59
PROVIDERS: ADMIT Internal Medicine; ATTEND Emergency Medicine
PROC: 0DB98ZX Excision of Duodenum, Via Natural or Artificial Opening Endoscopic, Diagnostic (ICD-10-PCS; 2024-03-03)
PROC: 0DB68ZX Excision of Stomach, Via Natural or Artificial Opening Endoscopic, Diagnostic (ICD-10-PCS; 2024-03-03)
PROC: 0DB58ZX Excision of Esophagus, Via Natural or Artificial Opening Endoscopic, Diagnostic (ICD-10-PCS; 2024-03-03)
PROC: 0JBL0ZZ Excision of Right Upper Leg Subcutaneous Tissue and Fascia, Open Approach (ICD-10-PCS; 2024-03-04)
PROC: 0KBN0ZZ Excision of Right Hip Muscle, Open Approach (ICD-10-PCS; 2024-03-04)
PROC: 0JBL0ZZ Excision of Right Upper Leg Subcutaneous Tissue and Fascia, Open Approach (ICD-10-PCS; 2024-03-10)
PROC: 30233N1 Transfusion of Nonautologous Red Blood Cells into Peripheral Vein, Percutaneous Approach (ICD-10-PCS; principal; 2024-03-13)
PROC: 02HV33Z Insertion of Infusion Device into Superior Vena Cava, Percutaneous Approach (ICD-10-PCS; 2024-03-14)
PROC: B548ZZA Ultrasonography of Superior Vena Cava, Guidance (ICD-10-PCS; 2024-03-14)
PROC: 0KBN0ZZ Excision of Right Hip Muscle, Open Approach (ICD-10-PCS; 2024-03-17)
PROC: 0KBQ0ZZ Excision of Right Upper Leg Muscle, Open Approach (ICD-10-PCS; 2024-03-17)
DX: A41.51 Sepsis due to Escherichia coli [E. coli] (principal); I50.33 Acute on chronic diastolic (congestive) heart failure; L89.154 Pressure ulcer of sacral region, stage 4; J15.69 Pneumonia due to other Gram-negative bacteria; J96.01 Acute respiratory failure with hypoxia; K21.01 Gastro-esophageal reflux disease with esophagitis, with bleeding; K25.4 Chronic or unspecified gastric ulcer with hemorrhage; K29.71 Gastritis, unspecified, with bleeding; J15.9 Unspecified bacterial pneumonia; L03.317 Cellulitis of buttock; L02.31 Cutaneous abscess of buttock; Z59.02 Unsheltered homelessness; L02.415 Cutaneous abscess of right lower limb; E87.1 Hypo-osmolality and hyponatremia; D68.59 Other primary thrombophilia; E44.1 Mild protein-calorie malnutrition; E87.6 Hypokalemia; D75.839 Thrombocytosis, unspecified; F17.210 Nicotine dependence, cigarettes, uncomplicated; T63.391A Toxic effect of venom of other spider, accidental (unintentional), initial encounter; D63.8 Anemia in other chronic diseases classified elsewhere; I48.0 Paroxysmal atrial fibrillation; R65.20 Severe sepsis without septic shock; I11.0 Hypertensive heart disease with heart failure; B95.62 Methicillin resistant Staphylococcus aureus infection as the cause of diseases classified elsewhere; E83.42 Hypomagnesemia; M60.9 Myositis, unspecified; M06.9 Rheumatoid arthritis, unspecified; Z88.2 Allergy status to sulfonamides; Z79.899 Other long term (current) drug therapy; Y92.89 Other specified places as the place of occurrence of the external cause; Z68.21 Body mass index [BMI] 21.0-21.9, adult
CPT/HCPCS: 36415; 36569; 71045; 71250; 72193; 73721; 76604; 80048; 80053; 80061; 80202; 81001; 82040; 82270; 82306; 82378; 82550; 82565; 82607; 82728; 82746; 82962; 83036; 83540; 83550; 83605; 83615; 83735; 83880; 83930; 84100; 84443; 85007; 85014; 85018; 85025; 85027; 85045; 85610; 85652; 85730; 86141; 86850; 86900; 86901; 86920; 87040; 87070; 87075; 87077; 87081; 87186; 87205; 92610; 93005; 93306; 93970; 94640; 96365; 96366; 96367; 96372; 97110; 97116; 97163; 97530; 99291; A4565; G0378; J1100; J1335; J1885; J2001; J2003; J2250; J2405; J2470; J2704; J3465; J3480; J3490; J7060